=== PATIENT | female | born 1975 | race Hispanic/Latino ===

== ENCOUNTER 2018-03-03 16:00 | Observation (INO) | payer OTHER ==
[~2018-03-03] VITALS: Ht 157.5 cm; Wt 88.6 kg
--- NOTE | 2018-03-03 16:10 | NUR ---
REC'D PT IN RM 8 WITH C/O NUMBNESS/TINGLING AND CRAMPING OF HER ARMS AND LEGS. TRIAGE NURSE,TECH AND PRIMARY RN AT BEDSIDE.
--- NOTE | 2018-03-03 16:30 | NUR ---
UNABLE TO SIT STILL AND IS AMBULATING AROUND THE ROOM. FINALLY MOVED TO A CHAIR. UPDATED ON POC/ORDERS
--- NOTE | 2018-03-03 17:00 | Diagnostic Imaging Report ---
EXAM: XR CHEST 1 VIEW DATE: 03/03/2018 4:37 PM INDICATION: Pain COMPARISON: None FINDINGS: Lines and Tubes: None Heart and Mediastinum: No acute cardiomediastinal findings. Lungs and Pleura: No significant pleural effusion, pneumothorax, or focal consolidation. Bones and Soft Tissues: No acute findings. IMPRESSION: 1. No acute cardiopulmonary findings. Signed by: Dr. William Vail MD on 03/03/2018 4:56 PM
[2018-03-03 17:02] LABS: BASOPHILS % 0.6 % (0.0-1.0); EOSINOPHILS # (AUTO) 0.1 (0.0-0.4); EOSINOPHILS % 2.2 % (0.0-6.0); HEMATOCRIT 31.8 % (34.2-44.1); HEMOGLOBIN 11.6 g/dL (12.0-16.0); LYMPHOCYTES # (AUTO) 1.9 (1.0-3.2); LYMPHOCYTES % 29.2 % (18.0-39.1); MEAN CORPUSCULAR HEMOGLOBIN 31.4 pg (28-32); MEAN CORPUSCULAR HGB CONC 36.5 g/dL (31-35); MEAN CORPUSCULAR VOLUME 86.2 fL (81-99); MONOCYTES # (AUTO) 0.5 (0.2-0.8); MONOCYTES % 8.3 % (4.4-11.3); NEUTROPHILS # (AUTO) 3.8 (2.1-6.9); NEUTROPHILS % 59.2 % (38.7-80.0); PLATELET COUNT 291 x10e3/uL (140-360); RED BLOOD COUNT 3.69 x10e6/uL (3.6-5.1); RED CELL DISTRIBUTION WIDTH 13.5 % (11.7-14.4)
[2018-03-03 17:10] LABS: CLARITY,URINE HAZY (CLEAR); COLOR,URINE STRAW (YELLOW); KETONES,URINE NEGATIVE (NEGATIVE); LEUKOCYTE ESTERASE ,URINE 1+ (NEGATIVE); NITRITE,URINE NEGATIVE (NEGATIVE); PROTEIN,URINE DIPSTICK NEGATIVE (NEGATIVE); URINE UROBILINOGEN 0.2 mg/dL (0.2 - 1)
[2018-03-03 17:11] LABS: BILIRUBIN,URINE NEGATIVE (NEGATIVE); PREGNANCY TEST, URINE NEGATIVE (NEGATIVE)
[2018-03-03] MEDS ORDERED: LACTATED RINGER'S 1,000 ML IV SCH (17:15)
[2018-03-03 17:17] LABS: BACTERIA,URINE MANY /HPF; EPITHELIAL CELLS,URINE MANY /LPF; RBC,URINE 0-5 /HPF (0-5); WBC,URINE (MAN) 0-5 /HPF (0-5)
[2018-03-03 17:21] LABS: ALANINE AMINOTRANSFERASE 10 IU/L (0-55); ALBUMIN 2.9 g/dL (3.5-5.0); ALKALINE PHOSPHATASE 53 IU/L (40-150); AMYLASE 71 U/L (25-125); ANION GAP 17.1 mmol/L (8-16); BLOOD UREA NITROGEN < 5 mg/dL (7-26); CALCIUM 7.3 mg/dL (8.4-10.2); CARBON DIOXIDE 33 mmol/L (22-29); CHLORIDE 88 mmol/L (98-107); CREATINE KINASE 240 IU/L (29-168); CREATININE, SERUM 0.67 mg/dL (0.57-1.11); EST GLOMERULAR FILTRATION RATE > 60 ML/MIN (60-); GLUCOSE 84 mg/dL (74-118); LIPASE 30 U/L (8-78); MAGNESIUM 1.3 MG/DL (1.3-2.1); SODIUM 136 mmol/L (136-145)
[2018-03-03 17:25] LABS: BUN/CREATININE RATIO 7 (6-25); POTASSIUM 2.1 mmol/L (3.5-5.1)
--- NOTE | 2018-03-03 17:27 | NUR ---
RECEIVED CRITICAL LAB REPORT. INFORMATION GIVEN TO STANISLAV Daniels AND DR. TRAN.
[2018-03-03] MEDS ORDERED: MAGNESIUM SULFATE 2GM/50ML 50 ML IV ONE ×2 (17:30→17:35)
[2018-03-03] MEDS ORDERED: POTASSIUM CHLORIDE 20MEQ/100ML 100 ML IV ONE (17:30)
[2018-03-03] MEDS ORDERED: MAGNESIUM SULF 1GRAM/DEXTROSE 100 ML IV ONE (17:30)
[2018-03-03] MEDS ORDERED: POTASSIUM CHLORIDE 20 MEQ TAB CR PO NR ×2 (17:30→23:00)
--- NOTE | 2018-03-03 17:30 | NUR ---
IVF BOLUS OF L.R. INFUSING WITH NO PROBLEM.
--- NOTE | 2018-03-03 17:30 | NUR ---
PATIENT PLACED BACK ON CSW. SHE IS MOVING AROUND ALOT, STANDING UP, ANXIOUS. EXPLAINED TO HER THAT HER ELECTROLYTES WERE OUT OF BALANCE WITH HER POTTASIUM AND CALCIUM. SHE VERBALIZED UNDERSTANDING AND GOT BACK INTO BED. PATIENT HAD SMELL OF ETOH LIKE SUBSTANCE. WHEN ASKED SHE STATES, "I DRANK 2 TALL BEERS LAST NIGHT". WHEN QUESTIONED FURTHER PATIENT STATES SHE DRINKS 4 TALL BEERS A DAY BUT HAS CUT BACK. WHEN QUESTIONED MORE PATIENT STATES 6 MONTHS AGO SHE WOULD DRINK [address] T[address]TH[address]. SELIN COL[place]ADO N.P. AT BEDSIDE RE-EVALUATING PATIENT
[2018-03-03] MEDS ORDERED: CALCIUM GLUCONATE 10% INJ 9.3 MEQ in SODIUM CHLORIDE 0.9% 100 ML 100 ML IV ONE (17:45)
[2018-03-03] MEDS ORDERED: CALCIUM GLUCONATE 10% INJ 0.465 MEQ/ML VIAL ONE (17:47)
[2018-03-03 17:51] LABS: AMPHETAMINES SCREEN,URINE NEGATIVE (NEGATIVE); BENZODIAZEPINES SCREEN,URINE NEGATIVE (NEGATIVE); PHENCYCLIDINE SCREEN,URINE NEGATIVE (NEGATIVE)
[2018-03-03] MEDS ORDERED: MULTIVITAMINS- 12 INJECTION 10 ML, FOLIC ACID MDV 5 MG, THIAMINE HCL INJ 100 MG in SODI... IV ONE (18:00)
[2018-03-03] MEDS ORDERED: LORAZEPAM INJ 2 MG/ML VIAL IV NR (18:00)
--- NOTE | 2018-03-03 18:00 | NUR ---
MEDS GIVEN PER DR'S ORDERS AND PT TOLERATING WELL.
[2018-03-03] MEDS ORDERED: HYDROXYCHLOROQ200 MG PO (18:02)
[2018-03-03] MEDS ORDERED: CYMBALTA30 MG PO (18:02)
[2018-03-03] MEDS ORDERED: ESIDRIX25 MG PO (18:02)
[2018-03-03] MEDS ORDERED: CLONIDINE HCL0.1 MG PO (18:02)
[2018-03-03] MEDS ORDERED: ONDANSETRON HCL INJ 2MG/ML 2ML 2 MG/ML VIAL IV PRN (18:15)
[2018-03-03] MEDS ORDERED: LORAZEPAM INJ 2 MG/ML VIAL IV PRN (18:15)
[2018-03-03 18:20] LABS: ABG HCO3 32 mmol/L (23-28); ABG PCO2 40 mmHg (41-51); ABG PO2 97 mmHg (80-105)
[2018-03-03 18:33] LABS: CALCIUM IONIZED 0.9 mmol/L (1.09-1.30)
--- OUTSIDE RECORDS SUMMARY | 2018-03-03 18:35 | XMS REPORT | Clinical Summary ---
Author Author [facility] Organization [facility] Address Unknown Phone Unavailable Care Team Providers Care Commissary Agent Name Role Phone Asked, No Pcp PCP Unavailable Allergies No Known Allergies Medications End Date Status Medication Sig Dispensed Refills Start Date Active diclofenac (VOLTAREN) 75 Take 75 mg by 0 MG EC tablet mouth 2 (two) times a day. Active DULoxetine (CYMBALTA) 30 Take 60 mg by 0 MG capsule mouth daily. Active hydroxychloroquine Take 200 mg 0 (PLAQUENIL) 200 mg tablet by mouth 2 (two) times a day. Active Problems Problem Noted Date General weakness 02/02/2016 Family History Medical History Relation Name Comments No Known Problems Father No Known Problems Mother Relation Name Status Comments Father Mother Social History Date Tobacco Use Types Packs/Day Years Used Never Smoker Alcohol Use Drinks/Week oz/Week Comments Yes occasional Sex Assigned at Date Recorded Not on file Industry Job Start Date Occupation Not on file Not on file Not on file Travel End Travel History Travel Start No recent travel history available. Last Filed Vital Signs Not on file Plan of Treatment Health Maintenance Due Date Last Done Comments CERVICAL CANCER SCREENING 12/01/1996 INFLUENZA VACCINE 09/06/2017 Results Not on fileafter 03/02/2017 Insurance Payer Benefit Subscriber ID Type Phone Address Plan / Group CIGNA CIGNA xxxxxxxxx HMO HMO/POS Advance Directives Patient has advance care planning documents on file. For more information, mary [facility] contact: Jamie Hernández [address] [place] [phone]
--- OUTSIDE RECORDS SUMMARY | 2018-03-03 18:35 | XMS REPORT ---
Author Author [facility] Address Unknown Phone Unavailable Care Team Providers Care Seam Presser Name Role Phone Ema TRAN Unavailable Unavailable Problems This patient has no known problems. Allergies, Adverse Reactions, Alerts This patient has no known allergies or adverse reactions. Medications This patient has no known medications. Encounters Start Date/Time End Date/Time Encounter Type Admission Type Attending [facility] Facility Care Department Encounter ID 2016-08-01 00:00:00 2016-08-01 00:00:00 Outpatient [facility] [id number] 2016-08-01 00:00:00 2016-08-01 00:00:00 Outpatient [facility] [id number] 2016-07-14 00:00:00 2016-07-14 00:00:00 Outpatient [facility] [id number] 2016-07-14 00:00:00 2016-07-14 00:00:00 Outpatient [facility] [id number] 2016-06-23 00:03:55 2016-06-23 00:03:55 Emergency [facility] [id number] 2016-06-22 22:23:36 2016-06-22 22:23:36 Emergency [facility] [id number] 2016-06-22 18:18:30 2016-06-22 18:18:30 Emergency [facility] [id number] Results Test Description Test Time Test Comments Text Results Atomic Results Result Comments CHEST SINGLE (PORTABLE) 2018-03-03 16:56:00 [facility] [address] [place] [address] Patient Name: DANIELLE HUNTER MR #: [id number] : 1975 Age/Sex: 42/F Req #: [id number] Adm Physician: Ordered by: DWAINE MIRANDA [employer] Report #: [id number] Location: ER Room/Bed: Procedure: [id number] DX/CHEST SINGLE (PORTABLE) Exam Date: 03/03/18 Exam Time: 1645 REPORT STATUS: Signed EXAM: XR CHEST 1 VIEW DATE: 03/03/2018 4:37 PM INDICATION: Pain COMPARISON: None FINDINGS: Lines and Tubes: None Heart and Mediastinum: No acute cardiomediastinal findings. Lungs and Pleura: No significant pleural effusion, pneumothorax, or focal consolidation. Bones and Soft Tissues: No acute findings. IMPRESSION: 1. No acute cardiopulmonary findings. Signed by: Dr. William Vail MD on 03/03/2018 4:56 PM Dictated By: WILLIAM VAIL MD 55 Transcribed By: MICHELLE on 03/03/181655 COPY TO: DWAINE MIRANDA NP
[2018-03-03 18:38] LABS: PHOSPHORUS 2.8 MG/DL (2.3-4.7)
--- NOTE | 2018-03-03 18:40 | NUR ---
ATIVAN 1MG GIVEN PER DR'S ORDERS; PT UNDERSTANDS WHY
--- NOTE | 2018-03-03 18:41 | NUR ---
RESTING IN BED AT THIS TIME TALKING ON THE PHONE.
--- NOTE | 2018-03-03 19:49 | NUR ---
DR. REYNOSO AT [facility]. REPORT CALLED TO [facility] FOR THIS PT. TO GO TO RM 294
--- NOTE | 2018-03-03 20:34 | NUR ---
PATIENT RECEIVED FROM EMERGENCY DEPARTMENT PER STRETCHER AT 2008; SHE'S ALERT AND ORIENTED X4, NO RESPIRATORY DISTRESS OBSERVED AND SHE DENIES PAIN. SKIN INTEGRITY INTACT, NO EDEMA NOTED TO THE EXTREMITIES. PATIENT STATED "I FELL AT HOME TWO WEEKS AGO DUE TO DIZZINESS". BED ALARM ON, ORIENTED TO SURROUNDINGS AND CALL LIGHT WITHIN EASY REACH.
[2018-03-03 20:57] VITALS: BP 124/80
[2018-03-03 21:00] VITALS: BP 124/80
[2018-03-03] MEDS ORDERED: SODIUM CHLORIDE 0.9% 50ML 50 ML ONE (21:48)
[2018-03-03] MEDS: CEFTRIAXONE SOD 1 GM/NS 50 ML 50 ML IV SCH (22:11)
[2018-03-03] MEDS: METOPROLOL TARTRATE 25 MG TAB PO SCH (22:12)
[2018-03-04] VITALS (8 sets, daily range): BP systolic 108–148; BP diastolic 65–102
--- NOTE | 2018-03-04 01:07 | NUR ---
PATIENT ASSISTED TO THE REST ROOM, NO ACUTE DISTRESS OBSERVED AND SHE DENIES PAIN. CALL LIGHT IN EASY REACH, BED ALARM ON, PATIENT INSTRUCTED TO CALL FOR ASSISTANCE NEEDED.
--- NOTE | 2018-03-04 04:27 | NUR ---
WALKING ROUNDS MADE; PATIENT IS ASLEEP, SHE'S EASY TO AROUSE. NO DISTRESS OBSERVED, SHE DENIES PAIN. BED ALARM ON, CALL LIGHT WITHIN EASY REACH.
[2018-03-04 05:12] LABS: BASOPHILS % 0.5 % (0.0-1.0); EOSINOPHILS # (AUTO) 0.1 (0.0-0.4); EOSINOPHILS % 2.6 % (0.0-6.0); HEMATOCRIT 32.2 % (34.2-44.1); HEMOGLOBIN 10.8 g/dL (12.0-16.0); LYMPHOCYTES % 25.8 % (18.0-39.1); MEAN CORPUSCULAR HEMOGLOBIN 30.1 pg (28-32); MEAN CORPUSCULAR HGB CONC 33.5 g/dL (31-35); MEAN CORPUSCULAR VOLUME 89.7 fL (81-99); MONOCYTES # (AUTO) 0.4 (0.2-0.8); MONOCYTES % 8.9 % (4.4-11.3); NEUTROPHILS # (AUTO) 2.4 (2.1-6.9); NEUTROPHILS % 61.7 % (38.7-80.0); PLATELET COUNT 248 x10e3/uL (140-360); RED BLOOD COUNT 3.59 x10e6/uL (3.6-5.1); RED CELL DISTRIBUTION WIDTH 13.6 % (11.7-14.4)
[2018-03-04 05:30] LABS: ALANINE AMINOTRANSFERASE 8 IU/L (0-55); ALBUMIN 2.6 g/dL (3.5-5.0); ALBUMIN/GLOBULIN RATIO 1.1 (0.8-2.0); ALKALINE PHOSPHATASE 48 IU/L (40-150); BLOOD UREA NITROGEN < 5 mg/dL (7-26); CALCIUM 7.3 mg/dL (8.4-10.2); CARBON DIOXIDE 31 mmol/L (22-29); CHLORIDE 100 mmol/L (98-107); CREATININE, SERUM 0.68 mg/dL (0.57-1.11); EST GLOMERULAR FILTRATION RATE > 60 ML/MIN (60-); GLUCOSE 109 mg/dL (74-118); SODIUM 142 mmol/L (136-145)
[2018-03-04 05:35] LABS: BUN/CREATININE RATIO 7 (6-25)
--- NOTE | 2018-03-04 05:59 | NUR ---
CALL AND SPOKE WITH DR REYNOSO REGARDING THIS PATIENT'S POTASSIUM LEVEL OF 3.0, NO NEW ORDER RECEIVED. MD WAS ASKED SPECIFICALLY IF HE DIDN'T WANT TO REPLACE THE POTASSIUM, HE STATED "NOT YET".
[2018-03-04] MEDS: METOPROLOL TARTRATE 25 MG TAB PO SCH ×2 (08:25→20:36)
[2018-03-04] MEDS: FAMOTIDINE 20 MG TAB PO SCH ×2 (08:25→16:06)
[2018-03-04] MEDS ORDERED: POTASSIUM CHLORIDE 20 MEQ TAB CR PO NR (11:30)
[2018-03-04] MEDS ORDERED: CALCIUM GLUCONATE 10% INJ 9.3 MEQ in SODIUM CHLORIDE 0.9% 100 ML 100 ML IV ONE (11:30)
[2018-03-04] MEDS: ALPRAZOLAM 0.25 MG TAB PO PRN (11:34)
[2018-03-04] MEDS: DULOXETINE HCL 30 MG DELAYED RELEASE PO SCH (11:40)
[2018-03-04] MEDS: HYDROXYCHLOROQUINE SULFATE 200 MG TAB PO SCH ×2 (11:40→16:06)
[2018-03-04 15:36] LABS: ALANINE AMINOTRANSFERASE 10 IU/L (0-55); ALBUMIN 2.6 g/dL (3.5-5.0); ALBUMIN/GLOBULIN RATIO 0.9 (0.8-2.0); ALKALINE PHOSPHATASE 50 IU/L (40-150); ANION GAP 12.7 mmol/L (8-16); BLOOD UREA NITROGEN < 5 mg/dL (7-26); CALCIUM 8.2 mg/dL (8.4-10.2); CARBON DIOXIDE 29 mmol/L (22-29); CHLORIDE 101 mmol/L (98-107); CREATININE, SERUM 0.71 mg/dL (0.57-1.11); EST GLOMERULAR FILTRATION RATE > 60 ML/MIN (60-); GLUCOSE 130 mg/dL (74-118); MAGNESIUM 1.5 MG/DL (1.3-2.1); POTASSIUM 3.7 mmol/L (3.5-5.1); SODIUM 139 mmol/L (136-145)
[2018-03-04 15:41] LABS: BUN/CREATININE RATIO 7 (6-25)
[2018-03-04] MEDS: ACETAMINOPHEN 325 MG TAB PO PRN (17:22)
--- NOTE | 2018-03-04 18:50 | NUR ---
[facility], patient aware of nurse change. Call rucker within reach and bed in lowest position.
--- NOTE | 2018-03-04 18:58 | NUR ---
IM- Progress Note O/N: no events RoS: no f/c/s/N/V/D/BETHEA/dizziness/cp/sob v/s; rev'd PE: tired appearing anicteric ns1s2 mod bs soft nt nd no e/t a&ox3; hopper labs/meds; revd A/P: 42yoF Hypokalemia UTI Alcohol intoxication Hypocalcemia HTn Lupus Fibromyalgia PLan: 1.replace lytes 2.alcohol cessation counseling 3.treat UTI; f/u cx; 03/04 Check lipids and Hba1c Pepe Parmar MD, PhD.
--- NOTE | 2018-03-04 19:00 | NUR ---
patient recieved awake, alert, lying quietly in bed. vss. no c/o pain noted. pm assessment complete. patient instructed to call for assistance when needed.
[2018-03-04] MEDS: CEFTRIAXONE SOD 1 GM/NS 50 ML 50 ML IV SCH (20:30)
[2018-03-04] MEDS ORDERED: ZOLPIDEM TARTRATE 5 MG TAB PO SCH (21:15)
[2018-03-05] MEDS: ALPRAZOLAM 0.25 MG TAB PO PRN (00:20)
--- NOTE | 2018-03-05 00:20 | NUR ---
bp 159/95 patient medicated with xanax 0.25mg po for anxiety.
[2018-03-05 00:30] VITALS: BP 159/95
[2018-03-05 04:00] VITALS: BP 163/98
--- NOTE | 2018-03-05 05:30 | NUR ---
bp remains elevated this am. bp 163/98. call placed to re: elevated bp and new order recieved.
[2018-03-05] MEDS ORDERED: ALPRAZOLAM0.25 MG PO (07:42)
[2018-03-05] MEDS ORDERED: FAMOTIDINE20 MG PO (07:42)
--- NOTE | 2018-03-05 07:44 | NUR ---
Discharge Summary Principal Dx: A/P: 42yoF Hypokalemia UTI Alcohol intoxication Hypocalcemia HTn Lupus Fibromyalgia Secondary Dx: Lupus cc and HPI; refer to H&P Hospital Course: A/P: 42yoF Hypokalemia UTI Alcohol intoxication Hypocalcemia HTn Lupus Fibromyalgia PLan: 1.replace lytes 2.alcohol cessation counseling 3.treat UTI; f/u cx; 03/04 Check lipids and Hba1c f/u pcp 1 week condition; stable d/c meds; see MAR d/c time>35mins d/c home Pepe Parmar MD, PhD.
[2018-03-05 08:00] VITALS: BP 166/95
[2018-03-05] MEDS ORDERED: PNEUMOCOCCAL VACCINE POLYVALENT 23 MCG/0.5 ML VIAL IM NR (08:00)
[2018-03-05] MEDS ORDERED: INFLUENZA VIRUS VAC SPLIT INJ 0.5 ML SYR IM NR (08:00)
[2018-03-05 08:18] LABS: CHOL/HDL RATIO 2.5 (3.0-3.6)
[2018-03-05] MEDS: FAMOTIDINE 20 MG TAB PO SCH (08:25)
[2018-03-05] MEDS: DULOXETINE HCL 30 MG DELAYED RELEASE PO SCH (08:25)
[2018-03-05] MEDS: METOPROLOL TARTRATE 25 MG TAB PO SCH (08:26)
[2018-03-05] MEDS: HYDROXYCHLOROQUINE SULFATE 200 MG TAB PO SCH (08:26)
[2018-03-05] MEDS ORDERED: HYDROCHLOROTHIAZIDE 25 MG TAB PO SCH (09:00)
[2018-03-05] MEDS: ACETAMINOPHEN 325 MG TAB PO PRN (10:56)
[2018-03-05 12:00] VITALS: BP 168/99
--- NOTE | 2018-03-05 12:24 | NUR ---
Pt discharged to home at this time. Pt is aox4 and able to verbalize needs. Denies any pain at this time. PT verbalized understanding of discharge instructions.
== END 2018-03-05 12:44 | disposition home or self-care (01) ==
LOC: ER 16:00 → ERHOLD 18:32 → MED/SURG3 19:27
PROVIDERS: ADMIT Internal Medicine; ATTEND Internal Medicine
DX: E87.6 Hypokalemia (principal); N39.0 Urinary tract infection, site not specified; F10.120 Alcohol abuse with intoxication, uncomplicated; M79.7 Fibromyalgia; I10 Essential (primary) hypertension; M32.9 Systemic lupus erythematosus, unspecified; E83.51 Hypocalcemia
CPT/HCPCS: 36415 ×3; 71045; 80053 ×2; 80061; 80307; 80320; 81001; 81025; 82150; 82306; 82330; 82550; 82553; 82805; 83036; 83690; 83735 ×2; 83970; 84100; 84443; 84484; 85025 ×2; 90732; 93005; 96367; 99284; G0378 ×3; J0610 ×2; J0696 ×2; J2060; J3411; J3475; J3480; J7030; J7120; J7121

== ENCOUNTER 2018-03-11 19:41 | Emergency (ER) | payer OTHER ==
[~2018-03-11] VITALS: Ht 157.5 cm; Wt 86.2 kg
[~2018-03-11 19:41] MED LIST: ALPRAZOLAM0.25 MG PO; CLONIDINE HCL0.1 MG PO; CYMBALTA30 MG PO; ESIDRIX25 MG PO; FAMOTIDINE20 MG PO; HYDROXYCHLOROQ200 MG PO
--- OUTSIDE RECORDS SUMMARY | 2018-03-11 19:43 | XMS REPORT | Clinical Summary ---
Author Author [facility] Organization [facility] Address Unknown Phone Unavailable Care Team Providers Care Language Translator Name Role Phone Asked, No Pcp PCP [...] INFLUENZA VACCINE 09/06/2017 Results Not on fileafter 03/10/2017 Insurance Payer Benefit Subscriber ID Type Phone Address Plan / Group CIGNA CIGNA xxxxxxxxx HMO HMO/POS Advance Directives Patient has advance care planning documents on file. For more information, mary solis contact: Jamie Hernández [address] [place] [phone]
[2018-03-11 20:13] LABS: BASOPHILS % 0.2 % (0.0-1.0); EOSINOPHILS # (AUTO) 0.2 (0.0-0.4); EOSINOPHILS % 2.5 % (0.0-6.0); HEMATOCRIT 31.7 % (34.2-44.1); HEMOGLOBIN 11.1 g/dL (12.0-16.0); LYMPHOCYTES # (AUTO) 2.3 (1.0-3.2); LYMPHOCYTES % 27.7 % (18.0-39.1); MEAN CORPUSCULAR HEMOGLOBIN 30.7 pg (28-32); MEAN CORPUSCULAR VOLUME 87.8 fL (81-99); MONOCYTES # (AUTO) 0.6 (0.2-0.8); MONOCYTES % 7.3 % (4.4-11.3); NEUTROPHILS % 61.9 % (38.7-80.0); PLATELET COUNT 245 x10e3/uL (140-360); RED BLOOD COUNT 3.61 x10e6/uL (3.6-5.1); RED CELL DISTRIBUTION WIDTH 13.6 % (11.7-14.4)
[2018-03-11 20:20] LABS: INR 0.97; PROTHROMBIN TIME 13.8 seconds (11.9-14.5)
[2018-03-11 20:21] LABS: PARTIAL THROMBOPLASTIN TIME 27.5 seconds (23.8-35.5)
[2018-03-11 20:31] LABS: ALANINE AMINOTRANSFERASE 27 IU/L (0-55); ALBUMIN 2.9 g/dL (3.5-5.0); ALKALINE PHOSPHATASE 73 IU/L (40-150); ANION GAP 14.9 mmol/L (8-16); BLOOD UREA NITROGEN 6 mg/dL (7-26); BUN/CREATININE RATIO 8 (6-25); CARBON DIOXIDE 28 mmol/L (22-29); CHLORIDE 90 mmol/L (98-107); CREATINE KINASE 327 IU/L (29-168); CREATININE, SERUM 0.75 mg/dL (0.57-1.11); EST GLOMERULAR FILTRATION RATE > 60 ML/MIN (60-); GLUCOSE 98 mg/dL (74-118); SODIUM 130 mmol/L (136-145)
[2018-03-11 20:34] LABS: CALCIUM 6.7 mg/dL (8.4-10.2); POTASSIUM 2.9 mmol/L (3.5-5.1)
--- NOTE | 2018-03-11 20:36 | Diagnostic Imaging Report ---
CHEST SINGLE (PORTABLE), 03/11/2018 8:03 PM Technique: CHEST SINGLE (PORTABLE) Comparison: 03/03/2018 Clinical history: Chest pain Findings: Prominent cardiac silhouette, accentuated by technique. No consolidation or edema. No effusion or pneumothorax. Impression: 1. Lines/Tubes: None 2. No acute abnormality. Signed by: Dr Regine Evans MD on 03/11/2018 8:33 PM
[2018-03-11] MEDS ORDERED: CALCIUM CARBONATE 500 MG CHEWABLE TABS PO STA (21:03)
[2018-03-11] MEDS ORDERED: POTASSIUM CHLORIDE 20 MEQ TAB CR PO STA (21:03)
[2018-03-11 21:28] LABS: AMPHETAMINES SCREEN,URINE NEGATIVE (NEGATIVE); BENZODIAZEPINES SCREEN,URINE NEGATIVE (NEGATIVE); PHENCYCLIDINE SCREEN,URINE NEGATIVE (NEGATIVE)
[2018-03-11 21:30] LABS: CLARITY,URINE CLEAR (CLEAR); COLOR,URINE YELLOW (YELLOW); KETONES,URINE NEGATIVE (NEGATIVE); LEUKOCYTE ESTERASE ,URINE NEGATIVE (NEGATIVE); NITRITE,URINE NEGATIVE (NEGATIVE); PROTEIN,URINE DIPSTICK NEGATIVE (NEGATIVE); URINE UROBILINOGEN 0.2 mg/dL (0.2 - 1)
[2018-03-11 21:31] LABS: BILIRUBIN,URINE NEGATIVE (NEGATIVE)
[2018-03-11 21:33] LABS: BACTERIA,URINE FEW /HPF; EPITHELIAL CELLS,URINE MANY /LPF; RBC,URINE 0-5 /HPF (0-5); WBC,URINE (MAN) 0-5 /HPF (0-5)
[2018-03-11 22:01] LABS: BAND NEUTROPHILS % (MANUAL) 2 %; EOSINOPHILS % (MANUAL) 2 % (0-7); LYMPHOCYTES % (MANUAL) 27 % (19-48); MONOCYTES % (MANUAL) 1 % (3.4-9.0); NEUTROPHILS % (MANUAL) 68 % (40-74); PLATELET ESTIMATE ADEQUATE; PLATELET MORPHOLOGY COMMENT NORMAL; RBC MORPHOLOGY COMMENT NORMAL
[2018-03-11 23:05] VITALS: BP 121/89
== END 2018-03-11 23:21 | disposition home or self-care (01) ==
LOC: ER 19:41
DX: R20.2 Paresthesia of skin (principal); E83.51 Hypocalcemia; E87.6 Hypokalemia; K52.9 Noninfective gastroenteritis and colitis, unspecified; I10 Essential (primary) hypertension; M32.9 Systemic lupus erythematosus, unspecified
CPT/HCPCS: 36415; 71045; 80053; 80307; 80320; 81001; 82330; 82550; 82553; 84484; 85025; 85610; 85730; 93005; 99284

== ENCOUNTER 2019-11-05 19:06 | Emergency (ER) | payer SELFPAY ==
[~2019-11-05] VITALS: Ht 157.5 cm; Wt 86.2 kg
[2019-11-05] MEDS ORDERED: ONDANSETRON HCL INJ 2MG/ML 2ML 2 MG/ML VIAL ONE (19:40)
[2019-11-05] MEDS ORDERED: SODIUM CHLORIDE 0.9% 1000ML 1,000 ML ONE (19:40)
[2019-11-05] MEDS ORDERED: PANTOPRAZOLE 40 MG 10ML VIAL IV NR (19:45)
[2019-11-05] MEDS ORDERED: ONDANSETRON HCL INJ 2MG/ML 2ML 2 MG/ML VIAL IV NR (19:45)
[2019-11-05] MEDS ORDERED: SODIUM CHLORIDE 0.9% 1000ML 1,000 ML IV ONE (19:45)
[2019-11-05 19:57] LABS: BASOPHILS # (AUTO) 0.1 (0.0-0.1); BASOPHILS % 0.8 % (0.0-1.0); EOSINOPHILS # (AUTO) 0.1 (0.0-0.4); EOSINOPHILS % 1.5 % (0.0-6.0); HEMATOCRIT 36.8 % (34.2-44.1); HEMOGLOBIN 12.1 g/dL (12.0-16.0); LYMPHOCYTES % 32.5 % (18.0-39.1); MEAN CORPUSCULAR HEMOGLOBIN 28.9 pg (28-32); MEAN CORPUSCULAR HGB CONC 32.9 g/dL (31-35); MONOCYTES # (AUTO) 0.7 (0.2-0.8); MONOCYTES % 11.5 % (4.4-11.3); NEUTROPHILS # (AUTO) 3.2 (2.1-6.9); NEUTROPHILS % 53.5 % (38.7-80.0); PLATELET COUNT 241 x10e3/uL (140-360); RED BLOOD COUNT 4.18 x10e6/uL (3.6-5.1); RED CELL DISTRIBUTION WIDTH 15.9 % (11.7-14.4)
[2019-11-05 20:08] LABS: ALANINE AMINOTRANSFERASE 97 IU/L (0-55); ALBUMIN 4.6 g/dL (3.5-5.0); ALBUMIN/GLOBULIN RATIO 1.2 (0.8-2.0); ALKALINE PHOSPHATASE 164 IU/L (40-150); ANION GAP 16.6 mmol/L (8-16); BLOOD UREA NITROGEN 5 mg/dL (7-26); BUN/CREATININE RATIO 7 (6-25); CALCIUM 8.8 mg/dL (8.4-10.2); CARBON DIOXIDE 24 mmol/L (22-29); CHLORIDE 97 mmol/L (98-107); CREATINE KINASE 174 IU/L (29-168); CREATININE, SERUM 0.74 mg/dL (0.57-1.11); EST GLOMERULAR FILTRATION RATE > 60 ML/MIN (60-); GLUCOSE 89 mg/dL (74-118); POTASSIUM 3.6 mmol/L (3.5-5.1); SODIUM 134 mmol/L (136-145)
[2019-11-05 21:43] VITALS: BP 142/97
== END 2019-11-05 21:53 | disposition home or self-care (01) ==
LOC: ER 19:53
DX: R00.2 Palpitations (principal); I10 Essential (primary) hypertension; M32.9 Systemic lupus erythematosus, unspecified; F41.9 Anxiety disorder, unspecified; M79.7 Fibromyalgia
CPT/HCPCS: 36415; 80053; 82550; 82553; 84484; 85025; 93005; 99283; C9113; J2405; J7030

== ENCOUNTER 2019-12-09 17:43 | Emergency (ER) | payer SELFPAY ==
[~2019-12-09] VITALS: Ht 157.5 cm; Wt 84.1 kg
[2019-12-09] MEDS ORDERED: AZITHROMYCIN 250 MG TAB ONE (20:25)
[2019-12-09] MEDS ORDERED: ONDANSETRON HCL INJ 2MG/ML 2ML 2 MG/ML VIAL IV STA (21:45)
[2019-12-09] MEDS ORDERED: ONDANSETRON ODT8 MG PO (21:47)
[2019-12-09] MEDS ORDERED: ONDANSETRON HCL INJ 2MG/ML 2ML 2 MG/ML VIAL ONE (21:52)
== END 2019-12-09 22:10 | disposition home or self-care (01) ==
LOC: FSED 18:17
DX: R07.9 Chest pain, unspecified (principal); E87.1 Hypo-osmolality and hyponatremia; E87.6 Hypokalemia; R74.8 Abnormal levels of other serum enzymes; F10.10 Alcohol abuse, uncomplicated; M32.9 Systemic lupus erythematosus, unspecified; M79.7 Fibromyalgia; I10 Essential (primary) hypertension; F41.9 Anxiety disorder, unspecified
CPT/HCPCS: 71046; 80053; 81003; 81025; 82553; 83880; 84484; 85025; 85379; 87400; 93005; 99283; J2405

== ENCOUNTER 2019-12-10 01:57 | Emergency (ER) | payer SELFPAY ==
[~2019-12-10] VITALS: Ht 157.5 cm; Wt 83.9 kg
[~2019-12-10 01:57] MED LIST changes: +ONDANSETRON ODT8 MG PO
[2019-12-10] MEDS ORDERED: ASPIRIN 81 MG CHEW TAB PO ONE (02:00)
--- NOTE | 2019-12-10 02:02 | Emergency Department Note ---
History of Present Illnes History of Present Illness History of Present Illness This is a 44 year old female returns to the ED for CP after being seen at [facility] 12 hours earlier .Complains of dysthesias b/l LE . Historian: Patient Arrival Mode: Car Onset (how long ago): day(s) (2) Duration (how long): day(s) (2) Timing of current episode: constant Progression: worsening Chronicity: new Context: Denies recent illness, Denies recent surgery, Denies recent immobilization, Denies recent travel, Denies trauma/injury, Denies new medicatio ns, Denies hx of DVT/PE, Denies non-compliance w/ medications, Denies other Relieving factors: none Exacerbating factors: none Associated symptoms: Reports chest pain, Reports nausea/vomiting Previous service: tests performed, one or more referrals Past Medical/Family History Physician Review I have reviewed the patient's past medical and family history. Any updates have been documented here. Past Medical History Clinical Suspicion of Infectio: No New/Unexplained Change in Ment: No Past Medical History: Hypertension, Lupus Other Medical History: fibromyalgia Past Surgical History: Cholecysctectomy, Other Surgery: RIGHT ANKLE FX Social History Smoking Cessation: Current some day smoker Alcohol Use: Social Any Illegal Drug Use: No Other Last Tetanus: OOD Review of Systems Review of Systems Constitutional: Reports no symptoms EENTM: Reports no symptoms Cardiovascular: Reports chest pain Respiratory: Reports no symptoms Gastrointestinal: Reports nausea, Reports vomiting Genitourinary: Reports no symptoms Musculoskeletal: Reports no symptoms Integumentary: Reports no symptoms Neurological: Reports no symptoms Psychological: Reports no symptoms Endocrine: Reports no symptoms Hematological/Lymphatic: Reports no symptoms Physical Exam Related Data Allergies: Coded Allergies: No Known Allergies (Unverified , 03/11/18) Triage Vital Signs Vital Signs Date Time Temp Pulse Resp B/P (MAP) Pulse Ox O2 Delivery O2 Flow Rate FiO2 12/10/19 02:04 98.8 85 20 147/108 100 Room Air Vital signs reviewed: Yes Physical Exam CONSTITUTIONAL Constitutional: Present well-developed, Present other (intoxicated) HENT HENT: Present normocephalic, Present atraumatic, Present oropharynx clear/moist, Present nose normal HENT L/R: Present left ext ear normal, Present right ext ear normal EYES Eyes: Reports PERRL, Reports conjunctivae normal NECK Neck: Present ROM normal PULMONARY Pulmonary: Present effort normal, Present breath sounds normal CARDIOVASCULAR Cardiovascular: Present regular rhythm, Present heart sounds normal, Present capillary refill normal, Present normal rate GASTROINTESTINAL Abdominal: Present soft, Present nontender, Present bowel sounds normal GENITOURINARY Genitourinary: Present exam deferred SKIN Skin: Present warm, Present dry MUSCULOSKELETAL Musculoskeletal: Present ROM normal NEUROLOGICAL Neurological: Present alert, Present oriented x 3, Present no gross motor or sensory deficits PSYCHOLOGICAL Psychological: Present mood/affect normal, Present judgement normal Results Laboratory Lab results reviewed: Yes Laboratory comments Laboratory Tests Test 12/10/19 02:08 White Blood Count 4.52 x10e3/uL (4.8-10.8) Red Blood Count 4.24 x10e6/uL (3.6-5.1) Hemoglobin 12.5 g/dL (12.0-16.0) Hematocrit 37.2 % (34.2-44.1) Mean Corpuscular Volume 87.7 fL (81-99) Mean Corpuscular Hemoglobin 29.5 pg (28-32) Mean Corpuscular Hemoglobin Concent 33.6 g/dL (31-35) Red Cell Distribution Width 15.6 % (11.7-14.4) Platelet Count 225 x10e3/uL (140-360) Neutrophils (%) (Auto) 58.4 % (38.7-80.0) Lymphocytes (%) (Auto) 29.2 % (18.0-39.1) Monocytes (%) (Auto) 9.5 % (4.4-11.3) Eosinophils (%) (Auto) 1.8 % (0.0-6.0) Basophils (%) (Auto) 0.9 % (0.0-1.0) Neutrophils # (Auto) 2.6 (2.1-6.9) Lymphocytes # (Auto) 1.3 (1.0-3.2) Monocytes # (Auto) 0.4 (0.2-0.8) Eosinophils # (Auto) 0.1 (0.0-0.4) Basophils # (Auto) 0.0 (0.0-0.1) Absolute Immature Granulocyte (auto 0.01 x10e3/uL (0-0.1) D-Dimer Quantitative (PE/DVT) 132 ng/mL (0-400) Urine Test Negative (NEGATIVE) Sodium Level 136 mmol/L (136-145) Potassium Level 3.7 mmol/L (3.5-5.1) Chloride Level 96 mmol/L (98-107) Carbon Dioxide Level 27 mmol/L (22-29) Anion Gap 16.7 mmol/L (8-16) Blood Urea Nitrogen < 5 mg/dL (7-26) Creatinine 0.71 mg/dL (0.57-1.11) Estimat Glomerular Filtration Rate > 60 ML/MIN (60-) BUN/Creatinine Ratio 7 (6-25) Glucose Level 79 mg/dL (74-118) Calcium Level 8.7 mg/dL (8.4-10.2) Total Bilirubin 0.8 mg/dL (0.2-1.2) Aspartate Amino Transf (AST/SGOT) 69 IU/L (5-34) Alanine Aminotransferase (ALT/SGPT) 50 IU/L (0-55) Alkaline Phosphatase 98 IU/L (40-150) Creatine Kinase 162 IU/L (29-168) Creatine Kinase MB 1.20 ng/mL (0-5.0) Troponin I 0.009 ng/mL (0-0.300) B-Type Natriuretic Peptide 12.1 pg/mL (0-100) Total Protein 8.4 g/dL (6.5-8.1) Albumin 4.1 g/dL (3.5-5.0) Globulin 4.3 g/dL (2.3-3.5) Albumin/Globulin Ratio 1.0 (0.8-2.0) Lipase 40 U/L (8-78) Urine Opiates Screen Negative (NEGATIVE) Urine Methadone Screen Negative (NEGATIVE) Urine Barbiturates Screen Negative (NEGATIVE) Urine Phencyclidine Screen Negative (NEGATIVE) Urine Amphetamines Screen Negative (NEGATIVE) Urine Methamphetamines Screen Negative (NEGATIVE) Urine Benzodiazepines Screen Negative (NEGATIVE) Urine Cocaine Screen Negative (NEGATIVE) Urine Cannabinoids Screen Negative (NEGATIVE) Ethyl Alcohol Level 147.2 mg/dL (0.0-10.0) Imaging Imaging results reviewed: Yes Impressions [place] [address] Patient Name: DANIELLE HUNTER MR #: [id number] : 1975 Age/Sex: 44/F Req #: [id number] Adm Physician: Ordered by: KAYLA AYERS DO Report #: [id number] Location: ER Room/Bed: Procedure: [id number] CT/CT CHEST W Exam Date: 12/10/19 Exam Time: 329 REPORT STATUS: Signed EXAM: CT Chest WITH contrast (PE Protocol) INDICATION: ^CP ^[id number] ^0330 COMPARISON: Same day chest x-ray TECHNIQUE: Chest was scanned utilizing a multidetector helical scanner from the lung apex through the level of the diaphragm after administration of IV contrast. Thin section reconstructions were obtained with special concentration on the pulmonary arteries. Coronal and sagittal reformations were obtained. Dose modulation, iterative reconstruction, and/or weight based adjustment of the mA/kV was utilized to reduce the radiation dose to as low as reasonably achievable. Pulmonary embolism protocol was performed. IV CONTRAST: 100 mL of Isovue-370 COMPLICATIONS: None RADIATION DOSE: Total DLP: 474.58 mGy*cm Estimated effective dose: (DLP x 0.014 x size factor) mSv CTDIvol has been reviewed. It is below the limits set by the Radiation Protocol Committee (RPC). FINDINGS: LINES/ TUBES: None. LUNGS AND AIRWAYS: No filling defect is identified within the pulmonary arteries to the segmental level. The lungs are unremarkable. Airways are normal. PLEURA: The pleural spaces are clear. HEART AND MEDIASTINUM: Calcified inferior left thyroid lobe nodule. No mediastinal, hilar or axillary lymphadenopathy. The heart is normal in size.. There is no pericardial effusion. . Main pulmonary artery measures 2.8 cm in diameter. UPPER ABDOMEN: Hepatic steatosis. Cholecystectomy. BONES: The visualized bony thorax is within normal limits. SOFT TISSUES: Unremarkable. IMPRESSION: No pulmonary emboli. Signed by: Dr. Oziel Mendez MD on 12/10/2019 4:30 AM Dictated By: OZIEL MENDEZ MD 9 Transcribed By: MICHELLE on 12/10/19429 COPY TO: KAYLA AYERS DO~ [facility] [address] [place] [address] Patient Name: DANIELLE HUNTER MR #: [id number] : 1975 Age/Sex: 44/F Req #: [id number] Adm Physician: Ordered by: KAYLA AYERS DO Report #: [id number] Location: ER Room/Bed: Procedure: [id number] CT/CT CHEST W Exam Date: 12/10/19 Exam Time: 329 REPORT STATUS: Signed EXAM: CT Chest WITH contrast (PE Protocol) INDICATION: ^CP ^[id number] ^0330 COMPARISON: Same day chest x-ray TECHNIQUE: Chest was scanned utilizing a multidetector helical scanner from the lung apex through the level of the diaphragm after administration of IV contrast. Thin section reconstructions were obtained with special concentration on the pulmonary arteries. Coronal and sagittal reformations were obtained. Dose modulation, iterative reconstruction, and/or weight based adjustment of the mA/kV was utilized to reduce the radiation dose to as low as reasonably achievable. Pulmonary embolism protocol was performed. IV CONTRAST: 100 mL of Isovue-370 COMPLICATIONS: None RADIATION DOSE: Total DLP: 474.58 mGy*cm Estimated effective dose: (DLP x 0.014 x size factor) mSv CTDIvol has been reviewed. It is below the limits set by the Radiation Protocol Committee (RPC). FINDINGS: LINES/ TUBES: None. LUNGS AND AIRWAYS: No filling defect is identified within the pulmonary arteries to the segmental level. The lungs are unremarkable. Airways are normal. PLEURA: The pleural spaces are clear. HEART AND MEDIASTINUM: Calcified inferior left thyroid lobe nodule. No mediastinal, hilar or axillary lymphadenopathy. The heart is normal in size.. There is no pericardial effusion. . Main pulmonary artery measures 2.8 cm in diameter. UPPER ABDOMEN: Hepatic steatosis. Cholecystectomy. BONES: The visualized bony thorax is within normal limits. SOFT TISSUES: Unremarkable. IMPRESSION: No pulmonary emboli. Signed by: Dr. Oziel Mendez MD on 12/10/2019 4:30 AM Dictated By: OZIEL MENDEZ MD 9 Transcribed By: MICHELLE on 12/10/19429 COPY TO: KAYLA AYERS DO~ Procedures 12 Lead ECG Interpretation ECG Interpretation : ECG: ECG 1 Bill Cutter: Interpreted by ED physician Date: Dec 10, 2019 Time: 02:26 Rhythm: sinus rhythm Rate: normal BPM: 73 QRS axis: normal ST segments normal: Yes T waves normal: Yes Clinical Impression: normal ECG Assessment & Plan Medical Decision Making MDM Diff Dx : PE, ACS, PTX, pancreatitis Assessment & Plan Final Impression: (1) Alcohol intoxication Depart Disposition: HOME, SELF-longterm Meds Active Scripts Ondansetron (ONDANSETRON ODT) 8 Mg Tab.rapdis, 4 MG PO Q6H PRN for nausea and vomiting, #20 TAB 0 Refills Prov:VICK REYES MD 12/09/19 Famotidine (FAMOTIDINE) 20 Mg Tab, 20 MG PO BIDAC for 14 Days, TAB Prov:RADHIKA REYNOSO MD 03/05/18 Alprazolam (ALPRAZOLAM) 0.25 Mg Tablet, 0.25 MG PO Q8H PRN for anxiety for 5 Days Prov:RADHIKA REYNOSO MD 03/05/18 Reported Medications Hydroxychloroquine Sulfate (HYDROXYCHLOROQUINE SULFATE) 200 Mg Tablet, 200 MG PO BID 03/03/18 Clonidine Hcl (CLONIDINE HCL) 0.1 Mg Tablet, 1 TAB PO TID, #60 TAB 03/03/18 Duloxetine Hcl (CYMBALTA) 30 Mg Capsule.dr 60 MG PO DAILY, #30 CAP 03/03/18 Hydrochlorothiazide* (ESIDRIX*) 25 Mg Tab, 25 MG PO BID, TAB 03/03/18 KAYLA AYERS DO Dec 10, 2019 02:02
[2019-12-10 02:21] LABS: BASOPHILS % 0.9 % (0.0-1.0); EOSINOPHILS # (AUTO) 0.1 (0.0-0.4); EOSINOPHILS % 1.8 % (0.0-6.0); HEMATOCRIT 37.2 % (34.2-44.1); HEMOGLOBIN 12.5 g/dL (12.0-16.0); LYMPHOCYTES # (AUTO) 1.3 (1.0-3.2); LYMPHOCYTES % 29.2 % (18.0-39.1); MEAN CORPUSCULAR HEMOGLOBIN 29.5 pg (28-32); MEAN CORPUSCULAR HGB CONC 33.6 g/dL (31-35); MEAN CORPUSCULAR VOLUME 87.7 fL (81-99); MONOCYTES # (AUTO) 0.4 (0.2-0.8); MONOCYTES % 9.5 % (4.4-11.3); NEUTROPHILS # (AUTO) 2.6 (2.1-6.9); NEUTROPHILS % 58.4 % (38.7-80.0); PLATELET COUNT 225 x10e3/uL (140-360); RED BLOOD COUNT 4.24 x10e6/uL (3.6-5.1); RED CELL DISTRIBUTION WIDTH 15.6 % (11.7-14.4)
[2019-12-10 02:26] LABS: AMPHETAMINES SCREEN,URINE NEGATIVE (NEGATIVE); BENZODIAZEPINES SCREEN,URINE NEGATIVE (NEGATIVE); PHENCYCLIDINE SCREEN,URINE NEGATIVE (NEGATIVE)
[2019-12-10 02:39] LABS: ALANINE AMINOTRANSFERASE 50 IU/L (0-55); ALBUMIN 4.1 g/dL (3.5-5.0); ALKALINE PHOSPHATASE 98 IU/L (40-150); ANION GAP 16.7 mmol/L (8-16); BLOOD UREA NITROGEN < 5 mg/dL (7-26); CALCIUM 8.7 mg/dL (8.4-10.2); CARBON DIOXIDE 27 mmol/L (22-29); CHLORIDE 96 mmol/L (98-107); CREATINE KINASE 162 IU/L (29-168); CREATININE, SERUM 0.71 mg/dL (0.57-1.11); EST GLOMERULAR FILTRATION RATE > 60 ML/MIN (60-); GLUCOSE 79 mg/dL (74-118); POTASSIUM 3.7 mmol/L (3.5-5.1); SODIUM 136 mmol/L (136-145)
[2019-12-10 02:42] LABS: BUN/CREATININE RATIO 7 (6-25)
[2019-12-10] MEDS ORDERED: SODIUM CHLORIDE 0.9% 1000ML 1,000 ML IV ONE (03:15)
[2019-12-10] MEDS ORDERED: SODIUM CHLORIDE 0.9% 50ML 50 ML ONE (03:36)
[2019-12-10] MEDS ORDERED: IOPAMIDOL 370 MG/ML 200 ML INFUS..BTL INJ ONE (03:36)
--- NOTE | 2019-12-10 03:47 | Diagnostic Imaging Report ---
EXAMINATION: CHEST SINGLE (PORTABLE) INDICATION: ^ERMD ORDER ^[id number] ^0305 ^Y COMPARISON: 03/11/2018 FINDINGS: AP view TUBES and LINES: None. LUNGS: Lungs are well inflated. There is no evidence of pneumonia or pulmonary edema. PLEURA: No pleural effusion or pneumothorax. HEART AND MEDIASTINUM: The cardiomediastinal silhouette is unremarkable. BONES AND SOFT TISSUES: No acute osseous lesion. Soft tissues are unremarkable. UPPER ABDOMEN: No free air under the diaphragm. IMPRESSION: No acute thoracic abnormality. Signed by: Dr. Oziel Barney MD on 12/10/2019 3:44 AM
--- NOTE | 2019-12-10 04:33 | Diagnostic Imaging Report ---
EXAM: CT Chest WITH contrast (PE Protocol) INDICATION: ^CP ^[id number] ^0330 COMPARISON: Same day chest x-ray TECHNIQUE: Chest was scanned utilizing a multidetector helical scanner from the lung apex through the level of the diaphragm after administration of IV contrast. Thin section reconstructions were obtained with special concentration on the pulmonary arteries. Coronal and sagittal reformations were obtained. Dose modulation, iterative reconstruction, and/or weight based adjustment of the mA/kV was utilized to reduce the radiation dose to as low as reasonably achievable. Pulmonary embolism protocol was performed. IV CONTRAST: 100 mL of Isovue-370 COMPLICATIONS: None RADIATION DOSE: Total DLP: 474.58 mGy*cm Estimated effective dose: (DLP x 0.014 x size factor) mSv CTDIvol has been reviewed. It is below the limits set by the Radiation Protocol Committee (RPC). FINDINGS: LINES/ TUBES: None. LUNGS AND AIRWAYS: No filling defect is identified within the pulmonary arteries to the segmental level. The lungs are unremarkable. Airways are normal. PLEURA: The pleural spaces are clear. HEART AND MEDIASTINUM: Calcified inferior left thyroid lobe nodule. No mediastinal, hilar or axillary lymphadenopathy. The heart is normal in size.. There is no pericardial effusion. . Main pulmonary artery measures 2.8 cm in diameter. UPPER ABDOMEN: Hepatic steatosis. Cholecystectomy. BONES: The visualized bony thorax is within normal limits. SOFT TISSUES: Unremarkable. IMPRESSION: No pulmonary emboli. Signed by: Dr. Oziel Barney MD on 12/10/2019 4:30 AM
[2019-12-10 06:37] VITALS: BP 120/84
--- OUTSIDE RECORDS SUMMARY | 2019-12-12 18:59 | XMS REPORT | Continuity of Care Document ---
Author Author [facility] t Organization [facility] Address [address] [place] [address] Phone Unavailable Care Team Providers Care Sewing Machine Operator Name Role Phone NO, PCP PCP Unavailable KAYLA AYERS Attphys Unavailable Ema REYES Attphys Unavailable Cj DRUMMOND Attphys Unavailable Ema TRAN Attphys Unavailable Payers Payer Name Policy Type Policy Number Effective Date Expiration Date Viridiana elias [facility] [id number] 2018 00:00:00 [facility] Problems Condition Name Condition Details Condition Category Status Onset Date Resolution Date Last Treatment Date Treating Clinician Comments Source Pain in right ankle Pain in right ankle Disease Active 2016-07-11 00:00 :00 [facility] Trimalleolar fracture Trimalleolar fracture Disease Active 201 08-10-17 00:00:00 [facility] General weakness General weakness Disease Active 2016-02-02 00:00:00 Jamie Hernández Hypocalcemia Hypocalcemia Problem Active [facility] Hypokalemia Hypokalemia Problem Active [facility] Palpitations Problem Active [facility] Allergies, Adverse Reactions, Alerts Allergy Name Allergy Type Status Severity Reaction(s) Onset Date Inacti ve Date Treating Clinician Comments Source No Known Allergies DA Active U 2019-02-10 00:00:00 [facility] No Known Allergies DA Active U 2017-08-24 00:00:00 [facility] Family History Family Member Diagnosis Comments Start Date Stop Date Source Natural father No Known Problems Leela Hernández Natural mother No Known Problems Leela Hernández Social History Social Habit Start Date Stop Date Quantity Comments Source Sex Assigned At [facility] Alcohol intake 2016-02-02 00:00:00 2016-02-02 00:00:00 Current drinker of alcohol (finding) Jamie Hernández Alcohol Comment 2016-02-02 00:00:00 2016-02-02 00:00:00 occasional Jamie Hernández Smoking Status Start Date Stop Date Source Never smoker Jamie ramirez Medications Ordered Medication Name Filled Medication Name Start Date Stop Da te Current Medication? Ordering Clinician Indication Dosage Frequency Signature (SIG) Comments Components Source Alprazolam Alprazolam 2018-03-05 06:42:00 Yes .25 Every 8 Hours as needed for Anxiety [facility] Famotidine Famotidine 2018-03-05 06:42:00 Yes 20 Twice Daily Before Meals [facility] diclofenac (VOLTAREN) 75 MG EC tablet 2016-02-03 10:53:45 Y es 75mg Q.5D Take 75 mg by mouth 2 (two) times a day. Jamie Hernández DULoxetine (CYMBALTA) 30 MG capsule 2016-02-03 10:53:45 Yes 60mg QD Take 60 mg by mouth daily. Jamie Hernández hydroxychloroquine (PLAQUENIL) 200 mg tablet 2016-02-03 10:53:45 Yes 200mg Q.5D Take 200 mg by mouth 2 (two) times a day. Jamie Hernández Clonidine Hcl Clonidine Hcl Yes 1 Three Times A Day [facility] Duloxetine Hcl (Cymbalta) 30 Mg CAPSULE. Duloxetine Hcl (Cymbalta) 30 Mg CAPSULE. Yes 60 Daily [facility] Hydrochlorothiazide (Esidrix*) 25 Mg TAB Hydrochloroth iazide (Esidrix*) 25 Mg TAB Yes 25 Twice A Day [facility] Hydroxychloroquine Sulfate Hydroxychloroquine Sulfate Yes 200 Twice A Day [facility] Vital Signs Vital Name Observation Time Observation Value Comments Source Body Temperature 2019-11-05 21:43:00 98.9 [degF] [facility] Weight 2019-11-05 19:25:00 190 [lb_av] [facility] BMI (Body Mass Index) 2019-11-05 19:25:00 34.8 kg/m2 [facility] Procedures This patient has no known procedures. Plan of Care Planned Activity Planned Date Details Comments Source Future Scheduled Test 2019-11-07 00:00:00 IMM Influenza Seas onal Nov to April (>/= 19 yrs) [code = IMM Influenza Seasonal Nov to April (>/= 19 yrs)] [facility] Scheduled Test 2019-09-07 00:00:00 INFLUENZA VACCINE [code = INFLUENZA VACCINE] [facility] Scheduled Test 2015 00:00:00 Breast Cancer Scrn (Yearly) [code = Breast Cancer Scrn (Yearly)] [facility] Scheduled Test 2005-12-01 00:00:00 Screening for giovana gnant neoplasm of cervix (procedure) [code = 614704505] [facility] Scheduled Test 2005-12-01 00:00:00 Screening for givoana gnant neoplasm of cervix (procedure) [code = 229022319] [facility] Scheduled Test 1996-12-01 00:00:00 Screening for giovana gnant neoplasm of cervix (procedure) [code = 932365260] [place] [facility] t Instructions Heart Palpitations [facility] Encounters Start Date/Time End Date/Time Encounter Type Admission Type Attendi [facility] Facility Care Department Encounter ID Source 2019-11-05 19:53:00 2019-11-05 21:53:00 Departed Emergency Room [facility] [id number] [facility] 2018-03-11 19:41:00 2018-03-11 23:21:00 Departed Emergency Room 1 SERGE DRUMMOND [facility] [id number] [facility] 2018-03-03 18:32:00 2018-03-05 12:44:00 Discharged Inpatient (obs) 1 LIANG TRAN [facility] [id number] [facility] 2016-08-01 00:00:00 2016-08-01 00:00:00 Outpatient [facility] [id number] [facility] 2016-08-01 00:00:00 2016-08-01 00:00:00 Outpatient [facility] [id number] [facility] 2016-07-14 00:00:00 2016-07-14 00:00:00 Outpatient [facility] [id number] [facility] 2016-07-14 00:00:00 2016-07-14 00:00:00 Outpatient [facility] [id number] [facility] 2016-06-23 00:03:55 2016-06-23 00:03:55 Emergency [facility] [id number] [facility] 2016-06-22 22:23:36 2016-06-22 22:23:36 Emergency [facility] [id number] [facility] 2016-06-22 18:18:30 2016-06-22 18:18:30 Emergency [facility] [id number] [facility] Results Test Description Test Time Test Comments Results Result Comments Source CT CHEST W 2019-12-10 04:23:00 [facility] CENTER[facility]: DANIELLE HUNTER : 1975 Sex: F [place] [address] Patient Name: DANIELLE HUNTER MR #: [id number] : 1975 [facility] 44[id number] Req #: [id number] Adm Physician: Ordered by: KAYLA AYERS DO Report #: [id number] Location: ER Room/Bed: Procedure: [id number] CT/CT CHEST W Exam Date: 12/10/19 Exam Time: 329 REPORT STATUS: Signed EXAM: CT Chest WITH contrast (PE Protocol) INDICATION: CP [id number] COMPARISON: Same day chest x-ray TECHNIQUE: Chest was scanned utilizing a multidetector helical scanner from the lung apex through the level of the diaphragm after administration of IV contrast. Thin section reconstructions were obtained with special concentration on the pulmonary arteries. Coronal and sagittal reformations were obtained. Dose modulation, iterative reconstruction, and/or weight based adjustment of the mA/kV was utilized to reduce the radiation dose to as low as reasonably achievable. Pulmonary embolism protocol was performed. IV CONTRAST: 100 mL of Isovue-370 COMPLICATIONS: None RADIATION DOSE: Total DLP: 474.58 mGy*cm Estimated effective dose: (DLP x 0.014 x size factor) mSv CTDIvol has been reviewed. It is below the limits set by the Radiation Protocol Committee (RPC). FINDINGS: LINES/ TUBES: None. LUNGS AND AIRWAYS: No filling defect is identified within the pulmonary arteries to the segmental level. The lungs are unremarkable. Airways are normal. PLEURA: The pleural spaces are clear. HEART AND MEDIASTINUM: Calcified inferior left thyroid lobe nodule. No mediastinal, hilar or axillary lymphadenopathy. The heart is normal in size.. There is no pericardial effusion. . Main pulmonary artery measures 2.8 cm in diameter. UPPER ABDOMEN: Hepatic steatosis. Cholecystectomy. BONES: The visualized bony thorax is within normal limits. SOFT TISSUES: Unremarkable. IMPRESSION: No pulmonary emboli. Signed by: Dr. Oziel Mendez MD on 12/10/2019 4:30 AM Dictated By: OZIEL MENDEZ MD 9 Transcribed By: MICHELLE on 12/10/19429 COPY TO: KAYLA AYERS DO CHEST SINGLE (PORTABLE) 2019-12-10 03:43:00 [facility] : 1975 Sex: F [place] [address] Patient Name: DANIELLE HUNTER MR #: [id number] : 1975 Age/Sex: 44/F Req #: [id number] Adm Physician: Ordered by: KAYLA AYERS DO Report #: [id number] Location: ER Room/Bed: Procedure: [id number] DX/CHEST SINGLE (PORTABLE) Exam Date: 12/10/19 Exam Time: 0305 REPORT STATUS: Signed EXAMINATION: CHEST SINGLE (POR TABLE) INDICATION: ERMD ORDER [id number] Y COMPARISON: 03/11/2018 FINDINGS: AP view TUBES and LINES: None. LUNGS: Lungs are well inflated. There is no evidence of pneumonia or pulmonary edema. PLEURA: No pleural effusion or pneumothorax. HEART AND MEDIASTINUM: The cardiomediastinal silhouette is unremarkable. BONES AND SOFT TISSUES: No acute osseous lesion. Soft tissues are unremarkable. UPPER ABDOMEN: No free air under the diaphragm. IMPRESSION: No acute thoracic abnormality. Signed by: Dr. Oziel Mendez MD on 12/10/2019 3:44 AM Dictated By: OZIEL MENDEZ MD 3 Transcribed By: MICHELLE on 12/10/19343 COPY TO: KAYLA AYERS DO CXR 2 VIEW - HOPD 2019-12-09 20:47:00 [facility] : 1975 Sex: F [place] [address] Patient Name: DANIELLE HUNTER MR #: [id number] : 1975 Age/Sex: 44/F Req #: [id number] [facility] Physician: Ordered by: VICK REYES MD Report #: [id number] Location: [facility] Room/Bed: Procedure: [id number] HOPD/CXR 2 VIEW - HOPD Exam Date: 12/09/19 Exam Time: 1840 REPORT STATUS: Signed EXAMINATION: CXR 2 VIEW - HOPD INDICATION: sob and chest pain COMPARISON: None FINDINGS: TUBES and LINES: None. LUNGS: Normal lung volumes. Lungs are clear. No consolidations. PLEURA: No pleural effusion or pneumothorax. HEART AND MEDIASTINUM: The cardiomediastinal silhouette is unremarkable. BONES AND SOFT TISSUES: No acute osseous lesion. Soft tissues are unremarkab le. UPPER ABDOMEN: No free air under the diaphragm. IMPRESSION: No acute thoracic radiographic abnormality. Signed by: Gavin Monsivais MD on 12/09/2019 8:47 PM Dictated By: GAVIN MONSIVAIS MD 46 Transcribed By: MICHELLE on 12/09/192046 COPY TO: VICK REYES MD Blood leukocytes automated count (number/volume) 2019-11-05 19:39:00 Test Item White Blood Count (test code = 6690-2) 6.00 4.8-10.8 [facility] automated count (number/volume)2019-11-05 19:39:00* Test Item Value Reference Range Interpretation Comments Red Blood Count (test code = 789-8) 4.18 3.6-5.1 [facility] hemoglobin measurement (moles/volume)2019-11-05 19:39:00* Test Item Value Reference Range Interpretation Comments Hemoglobin (test code = 72473-5) 12.1 12.0-16.0 [facility] blood hematocrit (volume fraction)2019-11-05 19:39:00* Test Item Value Reference Range Interpretation Comments Hematocrit (test code = 4544-3) 36.8 34.2-44.1 [facility] erythrocyte mean corpuscular [id number] 19:39:00* Test Item Value Reference Range Interpretation Comments Mean Corpuscular Volume (test code = 787-2) 88.0 81-99 [facility] erythrocyte mean corpuscular hemoglobin (mass per erythrocyte)2019-11-05 19:39:00* Test Item Value Reference Range Interpretation Comments Mean Corpuscular Hemoglobin (test code = 785-6) 28.9 28-32 [facility] erythrocyte mean corpuscular hemoglobin concentration measurement (mass/volume)2019-11-05 19:39:00* Test Item Value Reference Range Interpretation Comments Mean Corpuscular Hemoglobin Concent (test code = 786-4) 32.9 31-35 [facility] SouthRDW XxsJf-[id number] 19:39:00* Test Item Value Reference Range Interpretation Comments Red Cell Distribution Width (test code = 84483-7) 15.9 11.7 -14.4 [facility] blood platelet count (count/volume)2019-11-05 19:39:00* Test Item Value Reference Range Interpretation Comments Platelet Count (test code = 777-3) 241 140-360 [facility] blood segmented neutrophil count as percentage of total mfugwbucna2681-51-50 19:39:00* Test Item Value Reference Range Interpretation Comments Neutrophils (%) (Auto) (test code = 19165-2) 53.5 38.7-80.0 [facility] SouthAutcommunity healthed blood lymphocyte count as percentage ot total ehrltrqqeu9851-59-03 19:39:00* Test Item Value Reference Range Interpretation Comments Lymphocytes (%) (Auto) (test code = 736-9) 32.5 18.0-39.1 [facility] South[facility] blood monocyte count as percentage of total mwnucbmvai3365-34-72 19:39:00* Test Item Value Reference Range Interpretation Comments Monocytes (%) (Auto) (test code = 5905-5) 11.5 4.4-11.3 [facility] blood eosinophil count as percentage of total wkysltckub3108-37-58 19:39:00* Test Item Value Reference Range Interpretation Comments Eosinophils (%) (Auto) (test code = 713-8) 1.5 0.0-6.0 [facility] South[facility] blood basophil count as percentage of total lrtnosunoa7212-82-32 19:39:00* Test Item Value Reference Range Interpretation Comments Basophils (%) (Auto) (test code = 706-2) 0.8 0.0-1.0 [facility] SouthFluoroscopic procedure less than one hour sejyibyn7094-43-91 19:39:00* Test Item Value Reference Range Interpretation Comments IM GRANULOCYTES % (test code = IM GRANULOCYTES %) 0.2 0.0- 1.0 [facility] South[facility] blood neutrophil count 2019-11-05 19:39:00* Test Item Value Reference Range Interpretation Comments Neutrophils # (Auto) (test code = 751-8) 3.2 2.1-6.9 [facility] lymphocytes count (number/volume) 2019-11-05 19:39:00* Test Item Value Reference Range Interpretation Comments Lymphocytes # (Auto) (test code = 87579-3) 2.0 1.0-3.2 [facility] monocytes automated count (number/volume)2019-11-05 19:39:00* Test Item Value Reference Range Interpretation Comments Monocytes # (Auto) (test code = 742-7) 0.7 0.2-0.8 [facility] blood eosinophil count 2019-11-05 19:39:00* Test Item Value Reference Range Interpretation Comments Eosinophils # (Auto) (test code = 711-2) 0.1 0.0-0.4 [facility] SouthAutom[facility] blood basophil count (count/volume)2019-11-05 19:39:00* Test Item Value Reference Range Interpretation Comments Basophils # (Auto) (test code = 704-7) 0.1 0.0-0.1 [facility] SouthFluoroscopic procedure less than one hour iysqhhpg9550-71-70 19:39:00* Test Item Value Reference Range Interpretation Comments Absolute Immature Granulocyte (auto (kristina t code = Absolute Immature Granulocyte (auto) 0.01 0-0.1 [facility] sodium measurement (moles/volume)2019-11-05 19:39:00* Test Item Value Reference Range Interpretation Comments Sodium Level (test code = 2951-2) 134 136-145 [facility] Atlanta[facility]um or plasma potassium measurement (moles/volume)2019-11-05 19:39:00* Test Item Value Reference Range Interpretation Comments Potassium Level (test code = 2823-3) 3.6 3.5-5.1 [facility] Atlanta[facility] or plasma chloride measurement (moles/volume)2019-11-05 19:39:00* Test Item Value Reference Range Interpretation Comments Chloride Level (test code = 2075-0) 97 98-107 [facility] Atlanta[facility]um or plasma carbon dioxide, total measurement (moles/volume)2019-11-05 19:39:00* Test Item Value Reference Range Interpretation Comments Carbon Dioxide Level (test code = 2028-9) 24 - [facility] Atlanta[facility]um or plasma anion cor6118-91-45 19:39:00* Test Item Value Reference Range Interpretation Comments Anion Gap (test code = 69976-0) 16.6 8-16 [facility] Atlanta[facility]um or plasma urea nitrogen measurement (mass/volume)2019-11-05 19:39:00* Test Item Value Reference Range Interpretation Comments Blood Urea Nitrogen (test code = 3094-0) 5 7-26 [facility] plasma creatinine measurement (mass/volume)2019-11-05 19:39:00* Test Item Value Reference Range Interpretation Comments Creatinine (test code = 2160-0) 0.74 0.57-1.11 [facility] Atlanta[facility]um or plasma urea nitrogen/creatinine mass frawo9054-46-42 19:39:00* Test Item Value Reference Range Interpretation Comments BUN/Creatinine Ratio (test code = 3097-3) 7 6-25 [facility] SouthEstimated glomerular filtration rate (GFR) qdtrqiwybefqh5739-06-68 19:39:00* Test Item Value Reference Range Interpretation Comments Estimat Glomerular Filtration Rate (test code = 935640146) > 60 >60 Ranges were taken from the National Kidney Disease Education Program and the [facility] Foundation literature.Reference ranges:60 or greater: Smuxdj67-02 ( for 3 consecutive months): Chronic kidney disease 15 or less: Kidney failureCHRISTUS [facility]i – SouthGlucose fszbzkeywyk1435-83-80 19:39:00* Test Item Value Reference Range Interpretation Comments Glucose Level (test code = PNT5948) 89 74-118 [facility] Atlanta[facility]um or plasma calcium measurement (mass/volume)2019-11-05 19:39:00* Test Item Value Reference Range Interpretation Comments Calcium Level (test code = 18628-4) 8.8 8.4-10.2 [facility] Atlanta[facility] or plasma total bilirubin measurement (mass/volume)2019-11-05 19:39:00* Test Item Value Reference Range Interpretation Comments Total Bilirubin (test code = 1975-2) 0.7 0.2-1.2 [facility] SouthFluoroscopic procedure less than one hour rzmfsgkl3600-68-67 19:39:00* Test Item Value Reference Range Interpretation Comments Aspartate Amino Transf (AST/SGOT) (test code = Aspartate Amino Transf (AST/SGOT)) 94 5-34 [facility] Atlanta[facility]um or plasma alanine aminotransferase measurement (enzymatic activity/volume)2019-11-05 19:39:00* Test Item Value Reference Range Interpretation Comments Alanine Aminotransferase (ALT/SGPT) (test code = 1742-6) 97 0-55 [facility] Atlanta[facility]um or plasma protein measurement (mass/volume)2019-11-05 19:39:00* Test Item Value Reference Range Interpretation Comments Total Protein (test code = 2885-2) 8.4 6.5-8.1 [facility] Atlanta[facility] or plasma albumin measurement (mass/volume)2019-11-05 19:39:00* Test Item Value Reference Range Interpretation Comments Albumin (test code = 1751-7) 4.6 3.5-5.0 [facility]Plasma globulin measurement (mass/volume) 2019-11-05 19:39:00* Test Item Value Reference Range Interpretation Comments Globulin (test code = 66706-3) 3.8 2.3-3.5 [facility] Atlanta[facility] or plasma albumin/globulin mass [id number] 19:39:00* Test Item Value Reference Range Interpretation Comments Albumin/Globulin Ratio (test code = 1759-0) 1.2 0.8-2.0 [facility] Atlanta[facility]um or plasma alkaline phosphatase measurement (enzymatic activity/volume)2019-11-05 19:39:00* Test Item Value Reference Range Interpretation Comments Alkaline Phosphatase (test code = 6768-6) 164 40-150 [facility] Atlanta[facility]um or plasma creatine kinase measurement (enzymatic activity/volume)2019-11-05 19:39:00* Test Item Value Reference Range Interpretation Comments Creatine Kinase (test code = 2157-6) 174 29-168 [facility] Atlanta[facility]um or plasma creatine kinase MB measurement (mass/volume)2019-11-05 19:39:00* Test Item Value Reference Range Interpretation Comments Creatine Kinase MB (test code = 58469-5) 1.20 0-5.0 [facility] SouthTroponin I measurement by highly sensitive enzyme zebhijbgnnw9318-76-18 19:39:00* Test Item Value Reference Range Interpretation Comments Troponin I (test code = 93393-0) 0.006 0-0.300 [facility] SouthDRUGS OF ABUSE [id number] 17:48:00 * Test Item Value Reference Range Interpretation Comments UR COCAINE (test code = COCAU) NEGATIVE NEGATIVE DETECTION CUT OFF: 150 ng/mL UR CANNABINOIDS (test code = CANU) NEGATIVE NEGATIVE DETECTION CUT OFF: 50 ng/mL UR AMPHETAMINE (test code = AMPHU) NEGATIVE NEGATIVE DETECTION CUT OFF: 500 ng/mL UR BARBITURATE QUAL (test code = BARBQLU) NEGATIVE NEGATIVE DETECTION CUT OFF: 200 ng/mL UR BENZODIAZEPINE (test code = BENZU) NEGATIVE NEGATIVE DETECTION CUT OFF: 150 ng/mL UR OPIATES QUAL (test code = OPIAQLU) POSITIVE NEGATIVE A RESULTS CALLED TO TACHO PEMBERTONREAD BACK & CONFIRMED? YES.BY STEPHAN 02/10/19 0728. .DETECTION CUT OFF: 100 ng/mL UR PHENCYCLIDINE (PCP) (test code = PHENCU) NEGATIVE NEGATIVE DETECTION CUT OFF: 25 ng/mL UA RFLX MICR CULT IF [id number] 17:21:00* Test Item Value Reference Range Interpretation Comments UA COLOR (test code = COLU) YELLOW YELLOW UA APPEARANCE (test code = APPU) CLEAR CLEAR UA GLUCOSE DIPSTICK (test code = DGLUU) NEGATIVE NEG UA BILIRUBIN DIPSTICK (test code = BILU) NEGATIVE NEG UA KETONE DIPSTICK (test code = KETU) TRACE NEG A UA SPECIFIC GRAVITY (test code = SGU) 1.004 1.001-1.035 N UA BLOOD DIPSTICK (test code = LUCRETIA) 3+ NEG A UA PH DIPSTICK (test code = JASON) 7.0 5-9 UA PROTEIN DIPSTICK (test code = PROU) NEGATIVE NEG UA UROBILINIOGEN DIPSTICK (test code = URO) NEGATIVE mg/dL NEG UA NITRITE DIPSTICK (test code = JOSUÉ) NEG NEG UA LEUKOCYTE ESTERASE DIPSTICK (test code = LEUU) NEG NEG UA WBC (test code = WBCU) 0-2 #/hpf NONE SEEN UA RBC (test code = RBCU) 0-2 #/hpf NONE SEEN UA EPITHELIAL CELLS (test code = EPIU) RARE #/HPF RARE-FEW UA BACTERIA (test code = BACU) RARE /HPF RARE-FEW UA MUCUS (test code = MUCU) RARE NONE SEEN Indication for culture: Suprapubic PainUR HCG [id number] 17:21:00* Test Item Value Reference Range Interpretation Comments UR HCG QUAL (test code = HCGQLU) NEGATIVE 1. Very dilute urine specimens, as indicated by a lowspecific gravity, may not contain customer loyalty representative levels ofhCG. 2. False negative results may occur when the levels of hCGare below the sensitivity level of the test. If is still suspected, a first morningurine specimen should be collected 48 hours later andtested. Indication for culture: Suprapubic PainUA RFLX MICR CULT IF INDICATED 2019-02-10 17:17:00* Test Item Value Reference Range Interpretation Comments UA COLOR (test code = COLU) YELLOW UA APPEARANCE (test code = APPU) CLEAR UA GLUCOSE DIPSTICK (test code = DGLUU) NEGATIVE UA BILIRUBIN DIPSTICK (test code = BILU) NEGATIVE UA KETONE DIPSTICK (test code = KETU) NEGATIVE UA SPECIFIC GRAVITY (test code = SGU) 1.001-1.035 UA BLOOD DIPSTICK (test code = LUCRETIA) NEGATIVE UA PH DIPSTICK (test code = JASON) 5-9 UA PROTEIN DIPSTICK (test code = PROU) NEGATIVE UA UROBILINIOGEN DIPSTICK (test code = URO) mg/dL NEG UA NITRITE DIPSTICK (test code = JOSUÉ) NEGATIVE UA LEUKOCYTE ESTERASE DIPSTICK (test code = LEUU) NEG UA WBC (test code = WBCU) #/hpf NONE SEEN UA EPITHELIAL CELLS (test code = EPIU) #/HPF RARE-FEW Indication for culture: Suprapubic PainUR HCG [id number] 17:17:00* Test Item Value Reference Range Interpretation Comments UR HCG QUAL (test code = HCGQLU) NEGATIVE 1. Very dilute urine specimens, as indicated by a lowspecific gravity, may not contain customer loyalty representative levels ofhCG. 2. False negative results may occur when the levels of hCGare below the sensitivity level of the test. If is still suspected, a first morningurine specimen should be collected 48 hours later andtested. Indication for culture: Suprapubic PainCOMPREHENSIVE METABOLIC PANEL 2019-02-10 16:36:00* Test Item Value Reference Range Interpretation Comments SODIUM (test code = NA) 131 mEq/L 135-145 L POTASSIUM (test code = K) 3.7 mEq/L 3.5-5.0 N CHLORIDE (test code = CL) 93 mEq/L 100-115 L CARBON DIOXIDE (test code = CO2) 29 mEq/L 22-31 N ANION GAP (test code = GAP) 12.70 10-20 N GLUCOSE (test code = GLU) 109 mg/dL 65-110 N BLOOD UREA NITROGEN (test code = BUN) 7 mg/dL 7-18 N GLOMERULAR FILTRATION RATE (test code = GFR) 68 ml/min >60 N CREATININE (test code = CREAT) 0.9 mg/dL 0.5-1.0 N TOTAL PROTEIN (test code = PROT) 8.8 gm/dL 6.3-8.2 H ALBUMIN (test code = ALB) 3.9 gm/dL 3.4-4.8 N CALCIUM (test code = CA) 8.6 mg/dL 8.4-10.2 N BILIRUBIN TOTAL (test code = BILT) 1.5 mg/dL 0.2-1.0 H SGOT/AST (test code = AST) 42 units/L 15-37 H SGPT/ALT (test code = ALT) 46 units/L 12-78 N ALKALINE PHOSPHATASE TOTAL (test code = ALKP) 94 units/L 46-116 N CREATINE KINASE (CK)2019-02-10 16:36:00* Test Item Value Reference Range Interpretation Comments CREATINE KINASE (CK) (test code = CK) 194 Units/L 26-192 H [id number]-[id number] 16:36:00* Test Item Value Reference Range Interpretation Comments TROPONIN-I (test code = TROPI) <0.017 ng/mL <0.056 N COMPREHENSIVE METABOLIC [id number] 16:29:00* Test Item Value Reference Range Interpretation Comments SODIUM (test code = NA) 131 mEq/L 135-145 L POTASSIUM (test code = K) 3.7 mEq/L 3.5-5.0 N CHLORIDE (test code = CL) 93 mEq/L 100-115 L CARBON DIOXIDE (test code = CO2) 29 mEq/L 22-31 N ANION GAP (test code = GAP) 12.70 10-20 N GLUCOSE (test code = GLU) 109 mg/dL 65-110 N BLOOD UREA NITROGEN (test code = BUN) mg/dL 7-18 N GLOMERULAR FILTRATION RATE (test code = GFR) 68 ml/min >60 N CREATININE (test code = CREAT) 0.9 mg/dL 0.5-1.0 N TOTAL PROTEIN (test code = PROT) 8.8 gm/dL 6.3-8.2 H ALBUMIN (test code = ALB) 3.9 gm/dL 3.4-4.8 N CALCIUM (test code = CA) 8.6 mg/dL 8.4-10.2 N BILIRUBIN TOTAL (test code = BILT) 1.5 mg/dL 0.2-1.0 H SGOT/AST (test code = AST) 42 units/L 15-37 H SGPT/ALT (test code = ALT) 46 units/L 12-78 N ALKALINE PHOSPHATASE TOTAL (test code = ALKP) 94 units/L 46-116 N CREATINE KINASE (CK)2019-02-10 16:29:00* Test Item Value Reference Range Interpretation Comments CREATINE KINASE (CK) (test code = CK) 194 Units/L 26-192 H [id number] 16:29:00* Test Item Value Reference Range Interpretation Comments TROPONIN-I (test code = TROPI) <0.017 ng/mL <0.056 N TROPONIN I [id number] 16:01:00* Test Item Value Reference Range Interpretation Comments TROPONIN I RAPID (test code = TROPIRAP) 0.00 ng/mL 0.00-0.08 N CBC W/AUTO [id number] 16:01:00* Test Item Value Reference Range Interpretation Comments WHITE BLOOD CELL (test code = WBC) 7.3 K/mm3 6.6-12.1 N RED BLOOD CELL (test code = RBC) 4.35 M/mm3 3.45-5.01 N HEMOGLOBIN (test code = HGB) 11.9 g/dL 10.7-13.9 N HEMATOCRIT (test code = HCT) 37.4 % 32.1-42.1 N MEAN CELL VOLUME (test code = MCV) 86 fL 84.1-94.8 N MEAN CELL HGB (test code = MCH) 27.4 pg 27-35 N MEAN CELL HGB CONCETRATION (test code = MCHC) 31.8 gm/dL 32.2-34. 1 L RED CELL DISTRIBUTION WIDTH (test code = RDW) 15.5 % 12.4-16. 5 N PLATELET COUNT (test code = PLT) 367 K/mm3 133-385 N IMMATURE PLATELET FRACTION (test code = IPF) 0.0 % 0.0-10.8 N MEAN PLATELET VOLUME (test code = MPV) 8.9 fl 9.1-12.7 L NEUTROPHIL % (test code = NT%) 73.9 % 56.5-79.4 N LYMPHOCYTE % (test code = LY%) 16.1 % 14.3-34.3 N MONOCYTE % (test code = MO%) 8.3 % 5.1-10.4 N EOSINOPHIL % (test code = EO%) 0.6 % 0.1-3.0 N BASOPHIL % (test code = BA%) 0.7 % 0.1-1.0 N NEUTROPHIL # (test code = NT#) 5.4 K/mm3 LYMPHOCYTE # (test code = LY#) 1.2 K/mm3 MONOCYTE # (test code = MO#) 0.6 K/mm3 EOSINOPHIL # (test code = EO#) 0.04 K/mm3 BASOPHIL # (test code = BA#) 0.1 K/mm3 RBC MORPHOLOGY REQUIRED (test code = RBCM) NORMAL NORMAL PLATELET MORPHOLOGY REQUIRED (test code = PLTMR) NORMAL CECELIA L GASTRIC,[id number] 13:43:00 RUN DATE: 05/04/18 [facility] - Lab PAGE 1 RUN TIME: 1343 Specimen Inqui ry RUN USER: INTERFACE PATIENT: DANIELLE HUNTER ACCT #: [id number] LOC: JoseDSU U #: [id number] AGE/SX: 42/F ROOM: RE05/03/18[facility] DR: Julio Rondon MD : 75 BED: DIS: STATUS: [facility] TLOC: SPEC #: [id number] RECD: 05/03/18 STATUS: ALEJANDRO RELeon #: [id number] MARY: 05/03/18 [facility] DR: Julio Rondon MD ENTERED: 05/03/18 SP TYPE: GASTRIC BX OTHR DR: Yuliana Armendariz MD ORDERED: GROSS COPIES TO: Yuliana Rose MD [address] [place] [address] Julio Rondon MD [address] 1958 [address] [place] [id number] PROCEDURES: GROSS (05/04/18-1319) TISSUES: 1. ANTRUM - BX COLD 2. BODY BIOPSY OF STOMACH - COLD 3. COLON, NOS - RANDOM COLD CLINICAL HISTORY COLLECTION DATE: 05/03/18 DIARRHEA, NAUSEA FINAL DIAGNOSIS Stomach, antrum, bio psy: REACTIVE GASTROPATHY NO INTESTINAL METAPLASIA, DYSPLASIA OR M ALIGNANCY IDENTIFIED NO DIAGNOSTIC HELICOBACTER IDENTIFIED Stomach, body, biopsy: OXYNTIC GASTRIC MUCOSA WITH MINIMAL FOCAL CHRONIC INFLAMMA TION NEGATIVE FOR INTESTINAL METAPLASIA, DYSPLASIA OR MALIGNANCY Co karlee, random biopsy: UNREMARKABLE COLONIC MUCOSA WITH NO SIGNIFICANT INFLA MMATION, DYSPLASIA OR MALIGNANCY NO HISTOLOGIC FEATURES OF MICRO SCOPY COLITIS IDENTIFIED FA/sm STEFANIE MUKHERJEE ON NEXT PAGE RUN DATE: 05/04/18 [facility] - Lab PAGE 2 RUN TIME: 1343 Specimen Inquiry RUN USER: INTERFACE SPEC #: [id number] ATIENT: DANIELLE HUNTER #[id number] (Continued) FINAL DIAGNOSIS (Continued) D [id number] X 3, 25980 MA CROSCOPIC The first specimen is received in formalin, labeled with the patien t's name, identified as "antrum bx", and consists of two clemons-pink biopsy tissu e measuring 0.3 cm each, submitted as (1) for H E and Giemsa stains. The second specimen is received in formalin, labeled with the patient's name, carly ntified as "body of stomach bx ", and consists of two clemons-pink biopsy tissue m easuring 0.4 and 0.5 cm, submitted as (2). The third specimen is recei raymond in formalin, labeled with the patient's name, identified as "random colon bx", and consists of three clemons-pink biopsy tissue measuring 0.2, 0.3, and 0.4 cm, submitted as (3). GROSS PERFORMED AT [facility] [address] [facility] [place] [place] [address] (p)[phone] MICROSCOPIC All of the stains, including any con trols performed, stain appropriately. MICROSCOPIC PERFORMED AT [facility] [address] [facility] [place] [address] (p)[phone] PERFORMING SITE Diagnosis performed at: [facility], [place] [address] [place] [address] Signed SIGNATURE ON FILE Jas Alicea MD 05/04/18 1343 END OF REPORT BASIC METABOLIC [id number] 12:43:00* Test Item Value Reference Range Interpretation Comments SODIUM (test code = NA) 133 mmol/L 136-145 L POTASSIUM (test code = K) 3.2 mmol/L 3.5-5.1 L CHLORIDE (test code = CL) 92.0 mmol/L 98-107 L CARBON DIOXIDE (test code = CO2) 30.0 mmol/L 21-32 N ANION GAP (test code = GAP) 14.2 10-20 N GLUCOSE (test code = GLU) 88 mg/dL 74-106 N BLOOD UREA NITROGEN (test code = BUN) 1 mg/dL 7-18 L GLOMERULAR FILTRATION RATE (test code = GFR) > 60 mL/min >=60 Estimated GFR by using Modified MDRD formula.Chronic kidney disease is defined as either kidney damageor GFR <60 mL/min/1.73 m2 for >3 months. CREATININE (test code = CREAT) 0.60 mg/dL 0.55-1.02 N Note change in reference range due to change in reagent. BUN/CREATININE RATIO (test code = BUN/CREA) 1.7 10-20 L CALCIUM (test code = CA) 7.7 mg/dL 8.5-10.1 L Differential Total Cells [id number] 22:01:00* Test Item Value Reference Range Interpretation Comments Differential Total Cells Counted (test code = Differen tial Total Cells Counted) 100 [facility]utrophils % (Manual)2018-03-11 22:01:00 * Test Item Value Reference Range Interpretation Comments Neutrophils % (Manual) (test code = 44581-4) 68 40-74 [facility] SouthBand Neutrophils %2018-03-11 22:01:00* Test Item Value Reference Range Interpretation Comments Band Neutrophils % (test code = 764-1) 2 [facility] SouthLymphocytes % (Manual)2018-03-11 22:01:00 * Test Item Value Reference Range Interpretation Comments Lymphocytes % (Manual) (test code = 737-7) 27 19-48 [facility] SouthMonocytes % (Manual)2018-03-11 22:01:00* Test Item Value Reference Range Interpretation Comments Monocytes % (Manual) (test code = 744-3) 1 3.4-9.0 L [facility] SouthEosinophils % (Manual)2018-03-11 22:01:00 * Test Item Value Reference Range Interpretation Comments Eosinophils % (Manual) (test code = 714-6) 2 0-7 [facility] SouthPlatelet Rxlxsuxv1200-88-08 22:01:00* Test Item Value Reference Range Interpretation Comments Platelet Estimate (test code = 05057-6) ADEQUATE [facility] SouthPlatelet Morphology [id number] 22:01:00* Test Item Value Reference Range Interpretation Comments Platelet Morphology Comment (test code = 00167-9) NORMAL [facility] SouthRed Cell Morphology [id number] 22:01:00* Test Item Value Reference Range Interpretation Comments Red Cell Morphology Comment (test code = 6742-1) NORMAL [facility] SouthUrine [id number] 21:33:00* Test Item Value Reference Range Interpretation Comments Urine WBC (test code = 5821-4) 0-5 0-5 [facility] SouthUrine [id number] 21:33:00* Test Item Value Reference Range Interpretation Comments Urine RBC (test code = 65009-0) 0-5 0-5 [facility] SouthUrine Gfvbthqv0501-37-21 21:33:00* Test Item Value Reference Range Interpretation Comments Urine Bacteria (test code = 46689-7) FEW NONE [facility] SouthUrine Epithelial Hutgk2603-34-56 21:33:00 * Test Item Value Reference Range Interpretation Comments Urine Epithelial Cells (test code = 87714-1) MANY NONE [facility] SouthUrine Kbctl4981-29-27 21:31:00* Test Item Value Reference Range Interpretation Comments Urine Color (test code = 5778-6) YELLOW YELLOW [facility] SouthUrine Budftmy1726-78-24 21:31:00* Test Item Value Reference Range Interpretation Comments Urine Clarity (test code = 29883-9) CLEAR CLEAR [facility] SouthUrine Specific Kwfjqnw6098-30-35 21:31:00 * Test Item Value Reference Range Interpretation Comments Urine Specific [place] (test code = 5811-5) 1.005 1.010-1.02 5 L [facility] SouthUrine [id number] 21:31:00* Test Item Value Reference Range Interpretation Comments Urine pH (test code = 30189-4) 7 5-7 [facility] Leukocyte Jojmjxlz6900-75-13 21:31:00* Test Item Value Reference Range Interpretation Comments Urine Leukocyte Esterase (test code = 5799-2) NEGATIVE NEGATIVE [facility] Ocvcohj0716-28-98 21:31:00* Test Item Value Reference Range Interpretation Comments Urine Nitrite (test code = 17082-8) NEGATIVE NEGATIVE [facility] Celuuzn7335-46-76 21:31:00* Test Item Value Reference Range Interpretation Comments Urine Protein (test code = 5804-0) NEGATIVE NEGATIVE [facility] Glucose (UA)2018-03-11 21:31:00* Test Item Value Reference Range Interpretation Comments Urine Glucose (UA) (test code = 2349-9) NEGATIVE NEGATIVE [facility] Krtpctz4789-19-59 21:31:00* Test Item Value Reference Range Interpretation Comments Urine Ketones (test code = 49364-3) NEGATIVE NEGATIVE [facility] Cnkyyqpgkvpl2937-39-87 21:31:00* Test Item Value Reference Range Interpretation Comments Urine Urobilinogen (test code = 64436-0) 0.2 0.2-1 [facility] Mgztfpnmx6612-43-16 21:31:00* Test Item Value Reference Range Interpretation Comments Urine Bilirubin (test code = 1978-6) NEGATIVE NEGATIVE [facility] SouthU[facility] Llsci0633-46-01 21:31:00* Test Item Value Reference Range Interpretation Comments Urine Blood (test code = 40821-6) NEGATIVE NEGATIVE [facility] Opiates Dbizfn4455-74-33 21:28:00* Test Item Value Reference Range Interpretation Comments Urine Opiates Screen (test code = 29386-7) NEGATIVE NEGATIVE ALL TESTS PERFORMED MANUALLY ON BIORAD TOX/SEE TESTCHRISTUS [facility] – SouthUrine Barbiturates Unyuaj0861-33-95 21:28:00* Test Item Value Reference Range Interpretation Comments Urine Barbiturates Screen (test code = 640094622) NEGATIVE NEGA TIVE [facility] Phencyclidine Lfudma2741-67-06 21:28:00* Test Item Value Reference Range Interpretation Comments Urine Phencyclidine Screen (test code = 19380-6) NEGATIVE NEGAT RADHA [facility] Amphetamines Rtkxwj9481-23-24 21:28:00* Test Item Value Reference Range Interpretation Comments Urine Amphetamines Screen (test code = 50908-2) NEGATIVE NEGATI VE [facility] Methamphetamines Lxryld7270-87-14 21:28:00* Test Item Value Reference Range Interpretation Comments Urine Methamphetamines Screen (test code = Urine Metha mphetamines Screen) NEGATIVE NEGATIVE [facility] Benzodiazepines Ccdava7174-68-33 21:28:00* Test Item Value Reference Range Interpretation Comments Urine Benzodiazepines Screen (test code = 90288-8) NEGATIVE NEG ATIVE [facility] Cocaine Luajrb2078-74-73 21:28:00* Test Item Value Reference Range Interpretation Comments Urine Cocaine Screen (test code = 3398-5) NEGATIVE NEGATIVE [facility] Cannabinoids Jfxzxn0078-23-06 21:28:00* Test Item Value Reference Range Interpretation Comments Urine Cannabinoids Screen (test code = 67082-2) NEGATIVE NEGATI VE THESE RESULTS ARE FOR MEDICAL TREATMENT ONLYTHIS REPORT CONTAINS UNCONFIR MED SCREENING RESULTS*POSITIVE RESULTS WILL BE CONFIRMED BY REFERENCE LAB UPON R EQUEST CUT-OFFDRUG CLASS CONCENTRATION ng/mLAmphetamines 1000Methamphetamines 1000Cocaine 300Opiate 300Phencyc lidine 25Cannabinoid 50Barbiturates 300Benzodiazepine 300Methadone 300[facility] CenterU[facility] Methadone Oyyzeu3657-11-87 21:28:00* Test Item Value Reference Range Interpretation Comments Urine Methadone Screen (test code = 28748-2) NEGATIVE NEGATIVE THESE RESULTS ARE FOR MEDICAL TREATMENT ONLYTHIS REPORT CONTAINS UNCONFIR MED SCREENING RESULTS*POSITIVE RESULTS WILL BE CONFIRMED BY REFERENCE LAB UPON R EQUEST CUT-OFFDRUG CLASS CONCENTRATION ng/mLAmphetamines 1000Methamphetamines 1000Cocaine Metabolite 300Opiate 300Phencyc lidine 25Cannabinoid 50Barbiturates 300Benzodiazepine 300Methadone 300[facility] CenterIonized Mekpdfh7274-21-54 21:27:00* Test Item Value Reference Range Interpretation Comments Ionized Calcium (test code = 34837-4) 0.8 1.09-1.30 L [facility] SouthEthyl Alcohol Jzqda5670-97-21 20:51:00* Test Item Value Reference Range Interpretation Comments Ethyl Alcohol Level (test code = 5643-2) < 10.0 0.0-10.0 [facility] SouthCreatine Kinase [id number] 20:50:00* Test Item Value Reference Range Interpretation Comments Creatine Kinase MB (test code = 32796-5) 1.10 0-5.0 [facility] SouthTroponin [id number] 20:50:00* Test Item Value Reference Range Interpretation Comments Troponin I (test code = SYF5808) < 0.001 0-0.300 [facility]odium Dttkc5372-03-89 20:34:00* Test Item Value Reference Range Interpretation Comments Sodium Level (test code = 2951-2) 130 136-145 L [facility] SouthPotassium Rldxh0750-13-87 20:34:00* Test Item Value Reference Range Interpretation Comments Potassium Level (test code = 2823-3) 2.9 3.5-5.1 LL Results repeated and called to GRIFFIN STOVALL RN at 2032 on 03/11/18 by Liza angeles. Read back and verified.[facility] SouthChloride Kbtsh2655-95-82 20:34:00* Test Item Value Reference Range Interpretation Comments Chloride Level (test code = 2075-0) 90 98-107 L [facility] SouthCarbon Dioxide Smqdv8415-05-38 20:34:00* Test Item Value Reference Range Interpretation Comments Carbon Dioxide Level (test code = 2028-9) 28 22-29 [facility] SouthAnion Oif2477-13-06 20:34:00* Test Item Value Reference Range Interpretation Comments Anion Gap (test code = 35886-2) 14.9 8-16 [facility] SouthBlood Urea Hjulxcnx7060-96-71 20:34:00* Test Item Value Reference Range Interpretation Comments Blood Urea Nitrogen (test code = 3094-0) 6 7-26 L [facility] SouthCreatinine2019-02-03 20:34:00* Test Item Value Reference Range Interpretation Comments Creatinine (test code = 2160-0) 0.75 0.57-1.11 [facility] SouthBUN/Creatinine Zzgby4352-50-36 20:34:00* Test Item Value Reference Range Interpretation Comments BUN/Creatinine Ratio (test code = 3097-3) 8 6-25 [facility] SouthEstimat Glomerular Filtration Rate 2018-03-11 20:34:00* Test Item Value Reference Range Interpretation Comments Estimat Glomerular Filtration Rate (test code = 648150680) > 60 >60 Ranges were taken from the National Kidney Disease Education Program and the [facility] Foundation literature.Reference ranges:60 or greater: Uzhkkl74-87 ( for 3 consecutive months): Chronic kidney disease 15 or less: Kidney failureCHRISTUS [facility] – SouthGlucose Theqz8761-76-68 20:34:00* Test Item Value Reference Range Interpretation Comments Glucose Level (test code = DWD1236) 98 74-118 [facility] SouthCalcium Locuw1513-06-49 20:34:00* Test Item Value Reference Range Interpretation Comments Calcium Level (test code = 23309-6) 6.7 8.4-10.2 LL Results repeated and called to GRIFFIN STOVALL RN at 2032 on 03/11/18 by Liza angeles. Read back and verified.[facility] SouthTotal Gvisktfyt7908-64-29 20:34:00* Test Item Value Reference Range Interpretation Comments Total Bilirubin (test code = 1975-2) 0.6 0.2-1.2 [facility] SouthAspartate Amino Transf (AST/SGOT) 2018-03-11 20:34:00* Test Item Value Reference Range Interpretation Comments Aspartate Amino Transf (AST/SGOT) (test code = Aspartate Amino Transf (AST/SGOT)) 41 5-34 H [facility] SouthAlanine Aminotransferase (ALT/SGPT) 2018-03-11 20:34:00* Test Item Value Reference Range Interpretation Comments Alanine Aminotransferase (ALT/SGPT) (test code = 1742-6) 27 0-55 [facility] SouthTotal Cjpcryp6457-57-05 20:34:00* Test Item Value Reference Range Interpretation Comments Total Protein (test code = 2885-2) 5.9 6.5-8.1 L [facility] SouthAlbumin2019-02-03 20:34:00* Test Item Value Reference Range Interpretation Comments Albumin (test code = 1751-7) 2.9 3.5-5.0 L [facility] SouthGlobulin2019-02-03 20:34:00* Test Item Value Reference Range Interpretation Comments Globulin (test code = 76924-2) 3.0 2.3-3.5 [facility] SouthAlbumin/Globulin Ztpcq7224-97-56 20:34:00 * Test Item Value Reference Range Interpretation Comments Albumin/Globulin Ratio (test code = 1759-0) 1.0 0.8-2.0 [facility] SouthAlkaline Anuxyxynzqa9567-05-71 20:34:00* Test Item Value Reference Range Interpretation Comments Alkaline Phosphatase (test code = 6768-6) 73 40-150 [facility] SouthCreatine Jlvwkj4273-29-36 20:34:00* Test Item Value Reference Range Interpretation Comments Creatine Kinase (test code = 2157-6) 327 29-168 H [facility] SouthCHEST SINGLE (PORTABLE)2018-03-11 20:29:00 [facility] [address] [place] [address] Patient Name: DANIELLE HUNTER MR #: [id number] : 1975 Age/Sex: 42/F Req #: [id number] [facility] Physician: Ordered by: SERGE DRUMMOND MD Report #: [id number] Location: ER Room/Bed: Procedure: [id number] DX/CHEST SINGLE (PORTABLE) Exam Date: 03/11/18 Exam Time: 2014 REPORT STATUS: Signed CHEST SINGLE (PORTABLE), 03/11/2018 8:03 PM Technique: CHEST SINGLE (PORTABL E) Comparison: 03/03/2018 Clinical history: Chest pain Findings: Promi nent cardiac silhouette, accentuated by technique. No consolidation or edema. No effusion or pneumothorax. Impression: 1. Lines/Tubes: None 2. No acu te abnormality. Signed by: Dr Joshua Gallardo MD on 03/11/2018 8:33 PM Dictated By: JOSHUA GALLARDO MD 32 Transcribed By: MICHELLE on 03/11/182032 COPY TO: SERGE DRUMMOND MD Prothrombin Dnfl7897-03-00 20:21:00* Test Item Value Reference Range Interpretation Comments Prothrombin Time (test code = 5902-2) 13.8 11.9-14.5 [facility] SouthProthromb Time International Ratio 2018-03-11 20:21:00* Test Item Value Reference Range Interpretation Comments Prothromb Time International Ratio (test code = 6301-6) 0.97 Oral Anticoagulant Therapy INR Values:1. Low Intensity Therapy 1.5 - 2.02 . Moderate Intensity Therapy 2.0 - 3.03. High Intensity Therapy(1) 2.5 - 3. 54. High Intensity Therapy(2) 3.0 - 4.05. Panic Value INR > 5.0 [facility] SouthActivated Partial Thromboplast Time 2018-03-11 20:21:00* Test Item Value Reference Range Interpretation Comments Activated Partial Thromboplast Time (test code = 25586-1) 27.5 23.8-35.5 [facility] SouthWhite Blood Hbxoy8165-85-95 20:17:00* Test Item Value Reference Range Interpretation Comments White Blood Count (test code = 6690-2) 8.12 4.8-10.8 [facility] SouthRed Blood Xbvhf8805-65-90 20:17:00* Test Item Value Reference Range Interpretation Comments Red Blood Count (test code = 789-8) 3.61 3.6-5.1 [facility] SouthHemoglobin2019-02-03 20:17:00* Test Item Value Reference Range Interpretation Comments Hemoglobin (test code = 64112-6) 11.1 12.0-16.0 L [facility] SouthHematocrit2019-02-03 20:17:00* Test Item Value Reference Range Interpretation Comments Hematocrit (test code = 4544-3) 31.7 34.2-44.1 L [facility] SouthMean Corpuscular Mtbqtl5195-09-14 20:17:00* Test Item Value Reference Range Interpretation Comments Mean Corpuscular Volume (test code = 787-2) 87.8 81-99 [facility] SouthMean Corpuscular Egiywmdutj6934-43-22 20:17:00* Test Item Value Reference Range Interpretation Comments Mean Corpuscular Hemoglobin (test code = 785-6) 30.7 28-32 [facility] SouthMean Corpuscular Hemoglobin Concent 2018-03-11 20:17:00* Test Item Value Reference Range Interpretation Comments Mean Corpuscular Hemoglobin Concent (test code = 786-4) 35.0 31-35 [facility] SouthRed Cell Distribution Kfhnp2043-56-75 20:17:00* Test Item Value Reference Range Interpretation Comments Red Cell Distribution Width (test code = 48770-1) 13.6 11.7 -14.4 [facility] SouthPlatelet Bgmnd1786-39-56 20:17:00* Test Item Value Reference Range Interpretation Comments Platelet Count (test code = 777-3) 245 140-360 [facility] SouthNeutrophils (%) (Auto)2018-03-11 20:17:00 * Test Item Value Reference Range Interpretation Comments Neutrophils (%) (Auto) (test code = 60299-7) 61.9 38.7-80.0 [facility] SouthLymphocytes (%) (Auto)2018-03-11 20:17:00 * Test Item Value Reference Range Interpretation Comments Lymphocytes (%) (Auto) (test code = 736-9) 27.7 18.0-39.1 [facility] (%) (Auto)2018-03-11 20:17:00* Test Item Value Reference Range Interpretation Comments Monocytes (%) (Auto) (test code = 5905-5) 7.3 4.4-11.3 [facility] SouthEosinophils (%) (Auto)2018-03-11 20:17:00 * Test Item Value Reference Range Interpretation Comments Eosinophils (%) (Auto) (test code = 713-8) 2.5 0.0-6.0 [facility]Basophils (%) (Auto)2018-03-11 20:17:00* Test Item Value Reference Range Interpretation Comments Basophils (%) (Auto) (test code = 706-2) 0.2 0.0-1.0 [facility] SouthIM GRANULOCYTES %2018-03-11 20:17:00* Test Item Value Reference Range Interpretation Comments IM GRANULOCYTES % (test code = IM GRANULOCYTES %) 0.4 0.0- 1.0 [facility] SouthNeutrophils # (Auto)2018-03-11 20:17:00* Test Item Value Reference Range Interpretation Comments Neutrophils # (Auto) (test code = 751-8) 5.0 2.1-6.9 [facility] SouthLymphocytes # (Auto)2018-03-11 20:17:00* Test Item Value Reference Range Interpretation Comments Lymphocytes # (Auto) (test code = 25652-8) 2.3 1.0-3.2 [facility]Monocytes # (Auto)2018-03-11 20:17:00* Test Item Value Reference Range Interpretation Comments Monocytes # (Auto) (test code = 742-7) 0.6 0.2-0.8 [facility]Eosinophils # (Auto)2018-03-11 20:17:00* Test Item Value Reference Range Interpretation Comments Eosinophils # (Auto) (test code = 711-2) 0.2 0.0-0.4 [facility]ophils # (Auto)2018-03-11 20:17:00* Test Item Value Reference Range Interpretation Comments Basophils # (Auto) (test code = 704-7) 0.0 0.0-0.1 [facility] SouthAbsolute Immature Granulocyte (auto 2018-03-11 20:17:00* Test Item Value Reference Range Interpretation Comments Absolute Immature Granulocyte (auto (kristina t code = Absolute Immature Granulocyte (auto) 0.03 0-0.1 [facility]25-Hydroxy Vitamin D Uijad8036-87-55 05:09:00* Test Item Value Reference Range Interpretation Comments 25-Hydroxy Vitamin D Total (test code = 55942-0) 15 . L Reference Range:All Ages: Target levels 30 - 100[facility]25-Hydroxy Vitamin E17107-33-20 05:09:00* Test Item Value Reference Range Interpretation Comments 25-Hydroxy Vitamin D3 (test code = 37842-9) 11 . Performed at: [employer] [facility] [id number] [place], [place] [id number] Director: Pravin Dunbar MD, Phone: [phone] [facility]ohn [facility] – South25-Hydroxy Vitamin [id number] 05:09:00* Test Item Value Reference Range Interpretation Comments 25-Hydroxy Vitamin D2 (test code = 1989-3) 4.2 . [facility] SouthParathyroid Dvtqccw0944-90-03 09:13:00* Test Item Value Reference Range Interpretation Comments Parathyroid Hormone (test code = 2731-8) 82 15-65 H [facility] SouthCalcium (Send out)2018-03-06 09:13:00* Test Item Value Reference Range Interpretation Comments Calcium (Send out) (test code = 15096-0) 8.1 8.7-10.2 L [facility] SouthParathyroid Hormone Interpretation 2018-03-06 09:13:00* Test Item Value Reference Range Interpretation Comments Parathyroid Hormone Interpretation (test code = Parathyroid Hormone Interpretation) Comment . Interpretation Intact PTH Calcium (pg/mL) (mg/dL)Normal 15 - 65 8.6 - 10.2Pr imary Hyperparathyroidism >65 >10.2Secondary Hyperparathyroidism >65 <10.2Non-Parathyroid Hypercalcemia <65 >10.2Hypoparathyroidism <15 < 8.6Non- Parathyroid Hypocalcemia 15 - 65 < 8.6Performed at: - [facility] [address] [id number] Director: Nathan Gusman MD, Phone: [phone] at: - [facility] [address] [id number] Director: Jennifer Noonan MD, Phone: [phone] [facility] SouthHemoglobin A1c Hzpefpk9489-19-96 08:20:00* Test Item Value Reference Range Interpretation Comments Hemoglobin A1c Percent (test code = Hemoglobin A1c Percent) 6.0 4.0-7.0 [facility] SouthTriglycerides Tzzxq6194-69-72 08:20:00* Test Item Value Reference Range Interpretation Comments Triglycerides Level (test code = 2571-8) 117 0-149 [facility] SouthCholesterol Zmjlr7105-52-89 08:20:00* Test Item Value Reference Range Interpretation Comments Cholesterol Level (test code = 2093-3) 156 0-199 Less than 200 mg/dL Low Gazk132 - 239 mg/dL Borderline Raas289 m g/dl and greater High Risk [facility] SouthLDL Duzijpzruwu8736-43-28 08:20:00* Test Item Value Reference Range Interpretation Comments LDL Cholesterol (test code = 2089-1) 71 60-130 [facility] SouthHDL Avymporcusg1368-03-49 08:20:00* Test Item Value Reference Range Interpretation Comments HDL Cholesterol (test code = 2085-9) 62 40-60 H [facility] SouthCholesterol/HDL Uyndy0304-68-96 08:20:00 * Test Item Value Reference Range Interpretation Comments Cholesterol/HDL Ratio (test code = 9830-1) 2.5 3.0-3.6 L [facility] SouthHemoglobin A1c Rroeusk8737-37-06 08:20:00 * Test Item Value Reference Range Interpretation Comments Hemoglobin A1c Percent (test code = Hemoglobin A1c Percent) 6.0 4.0-7.0 [facility] SouthTriglycerides Uhsle0662-38-74 08:20:00* Test Item Value Reference Range Interpretation Comments Triglycerides Level (test code = 2571-8) 117 0-149 [facility] SouthCholesterol Ubmfr9947-23-19 08:20:00* Test Item Value Reference Range Interpretation Comments Cholesterol Level (test code = 2093-3) 156 0-199 Less than 200 mg/dL Low Pgcz039 - 239 mg/dL Borderline Kwoo295 m g/dl and greater High Risk [facility] SouthLDL Dojywkvrztc2450-61-43 08:20:00* Test Item Value Reference Range Interpretation Comments LDL Cholesterol (test code = 2089-1) 71 60-130 [facility] Digbctkfjoj2113-61-56 08:20:00* Test Item Value Reference Range Interpretation Comments HDL Cholesterol (test code = 2085-9) 62 40-60 H [facility] SouthCholesterol/HDL Hixpk8546-56-41 08:20:00 * Test Item Value Reference Range Interpretation Comments Cholesterol/HDL Ratio (test code = 9830-1) 2.5 3.0-3.6 L [facility] Atlantaodium Rusdx8441-07-20 15:41:00* Test Item Value Reference Range Interpretation Comments Sodium Level (test code = 2951-2) 139 136-145 [facility] SouthPotassium Lpcsw2206-78-29 15:41:00* Test Item Value Reference Range Interpretation Comments Potassium Level (test code = 2823-3) 3.7 3.5-5.1 [facility] SouthChloride Kxnaf5113-84-41 15:41:00* Test Item Value Reference Range Interpretation Comments Chloride Level (test code = 2075-0) 101 98-107 [facility] SouthCarbon Dioxide Jflmi4774-97-71 15:41:00* Test Item Value Reference Range Interpretation Comments Carbon Dioxide Level (test code = 2028-9) 29 22-29 [facility] SouthAnion Ssj1013-36-65 15:41:00* Test Item Value Reference Range Interpretation Comments Anion Gap (test code = 26500-9) 12.7 8-16 [facility] SouthBlood Urea Yqzcvknd3481-99-86 15:41:00* Test Item Value Reference Range Interpretation Comments Blood Urea Nitrogen (test code = 3094-0) < 5 7-26 L [facility] SouthCreatinine2019-01-27 15:41:00* Test Item Value Reference Range Interpretation Comments Creatinine (test code = 2160-0) 0.71 0.57-1.11 [facility] SouthBUN/Creatinine Qojwj9758-96-78 15:41:00* Test Item Value Reference Range Interpretation Comments BUN/Creatinine Ratio (test code = 3097-3) 7 6-25 [facility] SouthEstimat Glomerular Filtration Rate 2018-03-04 15:41:00* Test Item Value Reference Range Interpretation Comments Estimat Glomerular Filtration Rate (test code = 857194059) > 60 >60 Ranges were taken from the National Kidney Disease Education Program and the [facility] literature.Reference ranges:60 or greater: Nehuee13-66 ( for 3 consecutive months): Chronic kidney disease 15 or less: Kidney failureCHRISTUS Spohn Hospital Corpus Christi – SouthGlucose Qmoom2882-63-73 15:41:00* Test Item Value Reference Range Interpretation Comments Glucose Level (test code = XNE2548) 130 74-118 H [facility] SouthCalcium Fbuue1364-64-04 15:41:00* Test Item Value Reference Range Interpretation Comments Calcium Level (test code = 85192-8) 8.2 8.4-10.2 L [facility] SouthMagnesium Aifut8476-17-87 15:41:00* Test Item Value Reference Range Interpretation Comments Magnesium Level (test code = 36260-7) 1.5 1.3-2.1 [facility] SouthTotal Ifqjutrzo4081-03-68 15:41:00* Test Item Value Reference Range Interpretation Comments Total Bilirubin (test code = 1975-2) 0.3 0.2-1.2 [facility] SouthAspartate Amino Transf (AST/SGOT) 2018-03-04 15:41:00* Test Item Value Reference Range Interpretation Comments Aspartate Amino Transf (AST/SGOT) (test code = Aspartate Amino Transf (AST/SGOT)) 21 5-34 [facility] SouthAlanine Aminotransferase (ALT/SGPT) 2018-03-04 15:41:00* Test Item Value Reference Range Interpretation Comments Alanine Aminotransferase (ALT/SGPT) (test code = 1742-6) 10 0-55 [facility] SouthTotal Scjivcw7274-08-45 15:41:00* Test Item Value Reference Range Interpretation Comments Total Protein (test code = 2885-2) 5.4 6.5-8.1 L [facility] SouthAlbumin2019-01-27 15:41:00* Test Item Value Reference Range Interpretation Comments Albumin (test code = 1751-7) 2.6 3.5-5.0 L [facility] SouthGlobulin2019-01-27 15:41:00* Test Item Value Reference Range Interpretation Comments Globulin (test code = 19122-2) 2.8 2.3-3.5 [facility] SouthAlbumin/Globulin Ubtej1857-49-53 15:41:00 * Test Item Value Reference Range Interpretation Comments Albumin/Globulin Ratio (test code = 1759-0) 0.9 0.8-2.0 [facility] SouthAlkaline Iglrwdxxjsa9899-06-82 15:41:00* Test Item Value Reference Range Interpretation Comments Alkaline Phosphatase (test code = 6768-6) 50 40-150 [facility] SouthMagnesium Thswc4812-67-76 15:41:00* Test Item Value Reference Range Interpretation Comments Magnesium Level (test code = 37394-6) 1.5 1.3-2.1 [facility] SouthWhite Blood Oonjg9988-45-03 05:14:00* Test Item Value Reference Range Interpretation Comments White Blood Count (test code = 6690-2) 3.92 4.8-10.8 L [facility] SouthRed Blood Mabhl4004-57-96 05:14:00* Test Item Value Reference Range Interpretation Comments Red Blood Count (test code = 789-8) 3.59 3.6-5.1 L [facility] SouthHemoglobin2019-01-27 05:14:00* Test Item Value Reference Range Interpretation Comments Hemoglobin (test code = 15866-8) 10.8 12.0-16.0 L [facility] SouthHematocrit2019-01-27 05:14:00* Test Item Value Reference Range Interpretation Comments Hematocrit (test code = 4544-3) 32.2 34.2-44.1 L [facility] SouthMean Corpuscular Ewnfvo8056-54-02 05:14:00* Test Item Value Reference Range Interpretation Comments Mean Corpuscular Volume (test code = 787-2) 89.7 81-99 [facility] SouthMean Corpuscular Qcytsvhtiv9232-69-12 05:14:00* Test Item Value Reference Range Interpretation Comments Mean Corpuscular Hemoglobin (test code = 785-6) 30.1 28-32 [facility] SouthMean Corpuscular Hemoglobin Concent 2018-03-04 05:14:00* Test Item Value Reference Range Interpretation Comments Mean Corpuscular Hemoglobin Concent (test code = 786-4) 33.5 31-35 [facility] SouthRed Cell Distribution Wseyp9820-30-23 05:14:00* Test Item Value Reference Range Interpretation Comments Red Cell Distribution Width (test code = 16079-6) 13.6 11.7 -14.4 [facility] SouthPlatelet Cipnc0946-41-54 05:14:00* Test Item Value Reference Range Interpretation Comments Platelet Count (test code = 777-3) 248 140-360 [facility] SouthNeutrophils (%) (Auto)2018-03-04 05:14:00 * Test Item Value Reference Range Interpretation Comments Neutrophils (%) (Auto) (test code = 68507-3) 61.7 38.7-80.0 [facility] SouthLymphocytes (%) (Auto)2018-03-04 05:14:00 * Test Item Value Reference Range Interpretation Comments Lymphocytes (%) (Auto) (test code = 736-9) 25.8 18.0-39.1 [facility] SouthMonocytes (%) (Auto)2018-03-04 05:14:00* Test Item Value Reference Range Interpretation Comments Monocytes (%) (Auto) (test code = 5905-5) 8.9 4.4-11.3 [facility] SouthEosinophils (%) (Auto)2018-03-04 05:14:00 * Test Item Value Reference Range Interpretation Comments Eosinophils (%) (Auto) (test code = 713-8) 2.6 0.0-6.0 [facility] SouthBasophils (%) (Auto)2018-03-04 05:14:00* Test Item Value Reference Range Interpretation Comments Basophils (%) (Auto) (test code = 706-2) 0.5 0.0-1.0 [facility] SouthIM GRANULOCYTES %2018-03-04 05:14:00* Test Item Value Reference Range Interpretation Comments IM GRANULOCYTES % (test code = IM GRANULOCYTES %) 0.5 0.0- 1.0 [facility] SouthNeutrophils # (Auto)2018-03-04 05:14:00* Test Item Value Reference Range Interpretation Comments Neutrophils # (Auto) (test code = 751-8) 2.4 2.1-6.9 [facility] SouthLymphocytes # (Auto)2018-03-04 05:14:00* Test Item Value Reference Range Interpretation Comments Lymphocytes # (Auto) (test code = 36945-8) 1.0 1.0-3.2 [facility] SouthMonocytes # (Auto)2018-03-04 05:14:00* Test Item Value Reference Range Interpretation Comments Monocytes # (Auto) (test code = 742-7) 0.4 0.2-0.8 [facility] SouthEosinophils # (Auto)2018-03-04 05:14:00* Test Item Value Reference Range Interpretation Comments Eosinophils # (Auto) (test code = 711-2) 0.1 0.0-0.4 [facility] SouthBasophils # (Auto)2018-03-04 05:14:00* Test Item Value Reference Range Interpretation Comments Basophils # (Auto) (test code = 704-7) 0.0 0.0-0.1 [facility] SouthAbsolute Immature Granulocyte (auto 2018-03-04 05:14:00* Test Item Value Reference Range Interpretation Comments Absolute Immature Granulocyte (auto (kristina t code = Absolute Immature Granulocyte (auto) 0.02 0-0.1 [facility] SouthPhosphorus Zkayr8240-17-22 18:39:00* Test Item Value Reference Range Interpretation Comments Phosphorus Level (test code = GDM4114) 2.8 2.3-4.7 [facility] SouthPhosphorus Anxpk5480-94-30 18:39:00* Test Item Value Reference Range Interpretation Comments Phosphorus Level (test code = GCM2409) 2.8 2.3-4.7 [facility] SouthEthyl Alcohol Eznph6729-25-24 18:38:00* Test Item Value Reference Range Interpretation Comments Ethyl Alcohol Level (test code = 5643-2) 88.9 0.0-10.0 H [facility] SouthIonized Rcjyvec6930-11-25 18:33:00* Test Item Value Reference Range Interpretation Comments Ionized Calcium (test code = 45269-8) 0.9 1.09-1.30 L [facility] SouthArterial Blood sZ3782-98-78 18:21:00* Test Item Value Reference Range Interpretation Comments Arterial Blood pH (test code = 2744-1) 7.50 7.31-7.41 H [facility] SouthArterial Blood Partial Pressure CO2 2018-03-03 18:21:00* Test Item Value Reference Range Interpretation Comments Arterial Blood Partial Pressure CO2 (test code = 2018-8) 40 41-51 L [facility] SouthArterial Blood Partial Pressure O2 2018-03-03 18:21:00* Test Item Value Reference Range Interpretation Comments Arterial Blood Partial Pressure O2 (test code = 2018-8) 97 80-105 [facility] SouthArtersum[facility] Blood UEQ22215-32-87 18:21:00* Test Item Value Reference Range Interpretation Comments Arterial Blood HCO3 (test code = 1960-4) 32 23-28 H [facility] SouthArterial Blood Base Dawmnr1533-02-95 18:21:00* Test Item Value Reference Range Interpretation Comments Arterial Blood Base Excess (test code = 1925-7) 8.0 -2-3 H [facility] SouthArterial Blood Oxygen Saturation 2018-03-03 18:21:00* Test Item Value Reference Range Interpretation Comments Arterial Blood Oxygen Saturation (test code = 2708-6) 98.0 95-98 [facility] SouthFiO22019-01-26 18:21:00* Test Item Value Reference Range Interpretation Comments FiO2 (test code = FiO2) 28 Pt [facility]L [facility] gC3704-30-47 18:21:00* Test Item Value Reference Range Interpretation Comments Arterial Blood pH (test code = 2744-1) 7.50 7.31-7.41 H [facility] SouthArterial Blood Partial Pressure CO2 2018-03-03 18:21:00* Test Item Value Reference Range Interpretation Comments Arterial Blood Partial Pressure CO2 (test code = 2018-8) 40 41-51 L [facility] SouthArterial Blood Partial Pressure O2 2018-03-03 18:21:00* Test Item Value Reference Range Interpretation Comments Arterial Blood Partial Pressure O2 (test code = 2018-8) 97 80-105 [facility] SouthArterial Blood [id number] 18:21:00* Test Item Value Reference Range Interpretation Comments Arterial Blood HCO3 (test code = 1960-4) 32 23-28 H [facility] SouthArterial Blood Base Ftyuvd1168-07-04 18:21:00* Test Item Value Reference Range Interpretation Comments Arterial Blood Base Excess (test code = 1925-7) 8.0 -2-3 H [facility] SouthArterial Blood Oxygen Saturation 2018-03-03 18:21:00* Test Item Value Reference Range Interpretation Comments Arterial Blood Oxygen Saturation (test code = 2708-6) 98.0 95-98 [facility] SouthFiO22019-01-26 18:21:00* Test Item Value Reference Range Interpretation Comments FiO2 (test code = FiO2) 28 Pt on 2L [facility] HospitalThyroid Stimulating Hormone (TSH)2018-03-03 18:05:00* Test Item Value Reference Range Interpretation Comments Thyroid Stimulating Hormone (TSH) (test code = 98084-8) 3.275 0.350-4.940 [facility] SouthThyroid Stimulating Hormone (TSH) 2018-03-03 18:05:00* Test Item Value Reference Range Interpretation Comments Thyroid Stimulating Hormone (TSH) (test code = 86189-7) 3.275 0.350-4.940 [facility] SouthUrine Opiates Qzykvn8335-79-60 17:51:00* Test Item Value Reference Range Interpretation Comments Urine Opiates Screen (test code = 53051-0) NEGATIVE NEGATIVE ALL TESTS PERFORMED MANUALLY ON [employer] TOX/SEE TESTCHRISTUS [facility]us Christi – SouthUrine Barbiturates Fwbqte1380-78-69 17:51:00* Test Item Value Reference Range Interpretation Comments Urine Barbiturates Screen (test code = 157267086) NEGATIVE NEGA TIVE [facility] SouthUrine Phencyclidine Qhbgoc5411-72-25 17:51:00* Test Item Value Reference Range Interpretation Comments Urine Phencyclidine Screen (test code = 18034-3) NEGATIVE NEGAT RADHA [facility] SouthUrine Amphetamines Gvikke4449-18-67 17:51:00* Test Item Value Reference Range Interpretation Comments Urine Amphetamines Screen (test code = 24538-5) NEGATIVE NEGATI VE [facility] SouthUrine Methamphetamines Acbsci0755-40-13 17:51:00* Test Item Value Reference Range Interpretation Comments Urine Methamphetamines Screen (test code = Urine Metha mphetamines Screen) NEGATIVE NEGATIVE [facility] SouthUrine Benzodiazepines Zauzpg7283-10-10 17:51:00* Test Item Value Reference Range Interpretation Comments Urine Benzodiazepines Screen (test code = 60147-7) NEGATIVE NEG ATIVE [facility] SouthUrine Cocaine Bhcvoi4241-76-17 17:51:00* Test Item Value Reference Range Interpretation Comments Urine Cocaine Screen (test code = 3398-5) NEGATIVE NEGATIVE [facility] SouthUrine Cannabinoids Lfyeuu0027-91-98 17:51:00* Test Item Value Reference Range Interpretation Comments Urine Cannabinoids Screen (test code = 31783-4) NEGATIVE NEGATI VE THESE RESULTS ARE FOR MEDICAL TREATMENT ONLYTHIS REPORT CONTAINS UNCONFIR MED SCREENING RESULTS*POSITIVE RESULTS WILL BE CONFIRMED BY REFERENCE LAB UPON R EQUEST CUT-OFFDRUG CLASS CONCENTRATION ng/mLAmphetamines 1000Methamphetamines 1000Cocaine 300Opiate 300Phencyc lidine 25Cannabinoid 50Barbiturates 300Benzodiazepine 300Methadone 300[facility] CenterUrine Methadone Dtbpcm8035-91-56 17:51:00* Test Item Value Reference Range Interpretation Comments Urine Methadone Screen (test code = 39330-7) NEGATIVE NEGATIVE THESE RESULTS ARE FOR MEDICAL TREATMENT ONLYTHIS REPORT CONTAINS UNCONFIR MED SCREENING RESULTS*POSITIVE RESULTS WILL BE CONFIRMED BY REFERENCE LAB UPON R EQUEST CUT-OFFDRUG CLASS CONCENTRATION ng/mLAmphetamines 1000Methamphetamines 1000Cocaine Metabolite 300Opiate 300Phencyc lidine 25Cannabinoid 50Barbiturates 300Benzodiazepine 300Methadone 300[facility] CenterCreatine Kinase RD1610-12-65 17:33:00* Test Item Value Reference Range Interpretation Comments Creatine Kinase MB (test code = 79692-3) 0.90 0-5.0 [facility] SouthTroponin [id number] 17:33:00* Test Item Value Reference Range Interpretation Comments Troponin I (test code = KRJ3349) 0.001 0-0.300 [facility] SouthCreatine Dxbyvw9193-62-93 17:25:00* Test Item Value Reference Range Interpretation Comments Creatine Kinase (test code = 2157-6) 240 29-168 H [facility] SouthAmylase Bgtko6838-50-60 17:25:00* Test Item Value Reference Range Interpretation Comments Amylase Level (test code = 1798-8) 71 25-125 [facility] SouthLipase2019-01-26 17:25:00* Test Item Value Reference Range Interpretation Comments Lipase (test code = 3040-3) 30 8-78 [facility] SouthAmylase Ygfwb1779-72-64 17:25:00* Test Item Value Reference Range Interpretation Comments Amylase Level (test code = 1798-8) 71 25-125 [facility] SouthLipase2019-01-26 17:25:00* Test Item Value Reference Range Interpretation Comments Lipase (test code = 3040-3) 30 78 [facility] SouthUrine WUB2708-54-24 17:17:00* Test Item Value Reference Range Interpretation Comments Urine WBC (test code = 5821-4) 0-5 0-5 [facility] SouthUrine ETR5621-68-19 17:17:00* Test Item Value Reference Range Interpretation Comments Urine RBC (test code = 58466-2) 0-5 0-5 [facility] SouthUrine Ofnrgaos6473-80-96 17:17:00* Test Item Value Reference Range Interpretation Comments Urine Bacteria (test code = 87581-2) MANY NONE H [facility] SouthUrine Epithelial Wwbse7353-21-61 17:17:00 * Test Item Value Reference Range Interpretation Comments Urine Epithelial Cells (test code = 60847-9) MANY NONE [facility] SouthUrine Uvqwy5317-51-09 17:12:00* Test Item Value Reference Range Interpretation Comments Urine Color (test code = 5778-6) STRAW YELLOW [facility] [id number] 17:12:00* Test Item Value Reference Range Interpretation Comments Urine Clarity (test code = 26504-9) HAZY CLEAR [facility] Specific [id number] 17:12:00 * Test Item Value Reference Range Interpretation Comments Urine Specific [place] (test code = 5811-5) 1.000 1.010-1.02 5 L [facility] [id number] 17:12:00* Test Item Value Reference Range Interpretation Comments Urine pH (test code = 12777-6) 7 5-7 [facility] Leukocyte [id number] 17:12:00* Test Item Value Reference Range Interpretation Comments Urine Leukocyte Esterase (test code = 5799-2) 1+ NEGATIVE H [facility] [id number] 17:12:00* Test Item Value Reference Range Interpretation Comments Urine Nitrite (test code = 20940-9) NEGATIVE NEGATIVE [facility] Xpyzyck9291-98-55 17:12:00* Test Item Value Reference Range Interpretation Comments Urine Protein (test code = 5804-0) NEGATIVE NEGATIVE [facility] Glucose (UA)2018-03-03 17:12:00* Test Item Value Reference Range Interpretation Comments Urine Glucose (UA) (test code = 2349-9) NEGATIVE NEGATIVE [facility] Enkkwbs8277-29-65 17:12:00* Test Item Value Reference Range Interpretation Comments Urine Ketones (test code = 71608-1) NEGATIVE NEGATIVE [facility] Aunfedezecxh6576-28-17 17:12:00* Test Item Value Reference Range Interpretation Comments Urine Urobilinogen (test code = 54873-9) 0.2 0.2-1 [facility] Toedhdqwd3470-41-10 17:12:00* Test Item Value Reference Range Interpretation Comments Urine Bilirubin (test code = 1978-6) NEGATIVE NEGATIVE [facility] Dqufy5807-72-54 17:12:00* Test Item Value Reference Range Interpretation Comments Urine Blood (test code = 07784-0) 4+ NEGATIVE H [facility] Qsyf6415-88-70 17:12:00* Test Item Value Reference Range Interpretation Comments Urine Test (test code = 2106-3) NEGATIVE NEGATIVE [facility] Wwhm2527-53-20 17:12:00* Test Item Value Reference Range Interpretation Comments Urine Test (test code = 2106-3) NEGATIVE NEGATIVE [facility]2018[facility]03-03 16:56:00 [facility] [address] [address] Patient Name: DANIELLE HUNTER MR #: [id number] : 1975 Age/Sex: 42/F Req #: [id number] Adm Physician: Ordered by: DWAINE MIRANDA NP Report #: [id number] Location: ER Room/Bed: Procedure: [id number] DX/CHEST SINGLE (PORTABLE) Exam Date: 03/03/18 Exam Time: 1645 REPORT STATUS: Signed EXAM: XR CHEST 1 VIEW DATE: 03/03/2018 4:37 PM INDICATION: Pain COMPARISON: None FINDINGS: Lines and Tubes: None Heart and Media stinum: No acute cardiomediastinal findings. Lungs and Pleura: No significa nt pleural effusion, pneumothorax, or focal consolidation. Bones and Soft Tissues: No acute findings. IMPRESSION: 1. No acute cardiopulmonary fi ndings. Signed by: Dr. Brigid Vail MD on 03/03/2018 4:56 PM Dictate d By: BRIGID VAIL MD 55 Transcribed By: MICHELLE on 03/03/181655 COPY TO: DWAINE MIRANDA NP
--- OUTSIDE RECORDS SUMMARY | 2019-12-12 18:59 | XMS REPORT | Clinical Summary ---
Author Author [facility] Organization [facility] Address Unknown Phone Unavailable Care Team Providers Care Fitness And Wellness Coordinator Name Role Phone PCP Unavailable Allergies No Known Allergies Medications Not on file Active Problems Problem Noted Date Pain in right ankle 07/11/2016 Trimalleolar fracture 06/23/2016 Social History Date Tobacco Use Types Packs/Day Years Used Never Assessed Sex Assigned at Date Recorded Not on file Industry Job Start Date Occupation Not on file Not on file Not on file Travel End Travel History Travel Start No recent travel history available. Last Filed Vital Signs Not on file Plan of Treatment Health Maintenance Due Date Last Done Comments HPV Cervical Cancer Scrn 12/01/2005 Pap Cervical Cancer Scrn 12/01/2005 Breast Cancer Scrn 2015 (Yearly) IMM Influenza Seasonal 11/07/2019 Oct to April (>/= 19 yrs) Results Not on fileafter 12/09/2018 Insurance Type Payer Benefit Subscriber ID Effective Phone Address Plan / Dates Group [facility] SELF-PAY SELF-PAY xxxxxxx 2016- [phone] [id number] [place] [address] Guarantor Name Account Relation to Date of Phone Nimesh sue Address Type Patient DANIELLE HUNTER Personal/F Head of 1975 [address] (Home) [place], [place] [address] (Self)
== END 2019-12-10 07:00 | disposition home or self-care (01) ==
LOC: ER 02:00
DX: F10.129 Alcohol abuse with intoxication, unspecified (principal); R11.2 Nausea with vomiting, unspecified; I10 Essential (primary) hypertension; M32.9 Systemic lupus erythematosus, unspecified; M79.7 Fibromyalgia; F17.210 Nicotine dependence, cigarettes, uncomplicated
CPT/HCPCS: 36415; 71045; 71260; 80053; 80307; 80320; 81025; 82550; 82553; 83690; 83880; 84484; 85025; 85379; 93005; 99284; J7030; Q9967

== ENCOUNTER 2021-06-02 18:16 | Emergency (ER) | payer OTHER ==
[~2021-06-02] VITALS: Ht 157.5 cm; Wt 83.9 kg
[2021-06-02] MEDS ORDERED: ONDANSETRON HCL INJ 2MG/ML 2ML 2 MG/ML VIAL IV STA (18:29)
[2021-06-02] MEDS ORDERED: SODIUM CHLORIDE 0.9% 1000ML 1,000 ML IV STA (18:29)
[2021-06-02 18:43] LABS: BASOPHILS % 0.4 % (0.0-1.0); EOSINOPHILS # (AUTO) 0.2 (0.0-0.4); HEMATOCRIT 36.7 % (34.2-44.1); HEMOGLOBIN 11.7 g/dL (12.0-16.0); LYMPHOCYTES # (AUTO) 1.3 (1.0-3.2); LYMPHOCYTES % 16.1 % (18.0-39.1); MEAN CORPUSCULAR HEMOGLOBIN 26.8 pg (28-32); MEAN CORPUSCULAR HGB CONC 31.9 g/dL (31-35); MONOCYTES # (AUTO) 0.6 (0.2-0.8); MONOCYTES % 7.1 % (4.4-11.3); NEUTROPHILS # (AUTO) 5.7 (2.1-6.9); NEUTROPHILS % 73.1 % (38.7-80.0); PLATELET COUNT 318 x10e3/uL (140-360); RED BLOOD COUNT 4.37 x10e6/uL (3.6-5.1); RED CELL DISTRIBUTION WIDTH 16.3 % (11.7-14.4)
[2021-06-02 18:48] LABS: AMPHETAMINES SCREEN,URINE NEGATIVE (NEGATIVE); BENZODIAZEPINES SCREEN,URINE NEGATIVE (NEGATIVE); CLARITY,URINE CLEAR (CLEAR); COLOR,URINE YELLOW (YELLOW); KETONES,URINE 2+ (NEGATIVE); LEUKOCYTE ESTERASE ,URINE NEGATIVE (NEGATIVE); NITRITE,URINE NEGATIVE (NEGATIVE); PHENCYCLIDINE SCREEN,URINE NEGATIVE (NEGATIVE); PROTEIN,URINE DIPSTICK 2+ (NEGATIVE)
[2021-06-02 18:50] LABS: BACTERIA,URINE RARE /HPF; EPITHELIAL CELLS,URINE FEW /LPF; MUCUS,URINE FEW (RARE)
[2021-06-02] MEDS ORDERED: DIATRIZOATE MEGL/DIATRIZOA SOD 30 ML BTL PO ONE (18:52)
[2021-06-02 18:59] LABS: ALBUMIN 3.5 g/dL (3.5-5.0); ALBUMIN/GLOBULIN RATIO 0.9 (0.8-2.0); ANION GAP 14.1 mmol/L (8-16); CALCIUM 8.3 mg/dL (8.4-10.2); CREATININE, SERUM 0.8 mg/dL (0.57-1.11); POTASSIUM 3.1 mmol/L (3.5-5.1)
[2021-06-02] MEDS ORDERED: IOPAMIDOL 370 MG/ML 100 ML INFUS..BTL INJ ONE (19:22)
[2021-06-02 19:35] LABS: LIPASE 55 U/L (8-78)
[2021-06-02] MEDS ORDERED: ACETAMINOPHEN-1 EAC4 PO (22:19)
[2021-06-02 22:35] VITALS: BP 169/114
== END 2021-06-02 22:35 | disposition home or self-care (01) ==
LOC: ER 18:41
DX: R10.10 Upper abdominal pain, unspecified (principal); M32.9 Systemic lupus erythematosus, unspecified; I10 Essential (primary) hypertension; M79.7 Fibromyalgia; K76.0 Fatty (change of) liver, not elsewhere classified; Z90.49 Acquired absence of other specified parts of digestive tract
CPT/HCPCS: 36415; 74177; 80053; 80307; 80320; 81001; 81025; 83690; 85025; 93005; 99284; J2405; J7030; Q9967

== ENCOUNTER 2021-06-23 09:51 | Inpatient (IN) | payer OTHER ==
[~2021-06-23] VITALS: Ht 157.5 cm; Wt 91.9 kg
[~2021-06-23 09:51] MED LIST changes: +ACETAMINOPHEN-1 EAC4 PO
[2021-06-23] MEDS ORDERED: SODIUM CHLORIDE 0.9% 1000ML 1,000 ML IV STA (10:47)
[2021-06-23 11:14] LABS: BASOPHILS % 0.5 % (0.0-1.0); EOSINOPHILS # (AUTO) 0.1 (0.0-0.4); EOSINOPHILS % 0.8 % (0.0-6.0); HEMOGLOBIN 12.2 g/dL (12.0-16.0); LYMPHOCYTES % 16.1 % (18.0-39.1); MEAN CORPUSCULAR HEMOGLOBIN 27.2 pg (28-32); MEAN CORPUSCULAR HGB CONC 32.1 g/dL (31-35); MEAN CORPUSCULAR VOLUME 84.6 fL (81-99); MONOCYTES # (AUTO) 0.4 (0.2-0.8); MONOCYTES % 6.4 % (4.4-11.3); NEUTROPHILS # (AUTO) 4.8 (2.1-6.9); NEUTROPHILS % 75.7 % (38.7-80.0); PLATELET COUNT 450 x10e3/uL (140-360); RED BLOOD COUNT 4.49 x10e6/uL (3.6-5.1); RED CELL DISTRIBUTION WIDTH 17.6 % (11.7-14.4)
[2021-06-23 11:26] LABS: INR 0.95; PARTIAL THROMBOPLASTIN TIME 28.6 seconds (23.8-35.5); PROTHROMBIN TIME 13.5 seconds (11.9-14.5)
[2021-06-23 11:34] LABS: ALANINE AMINOTRANSFERASE 29 IU/L (0-55); ALBUMIN 3.5 g/dL (3.5-5.0); ALBUMIN/GLOBULIN RATIO 0.8 (0.8-2.0); ALKALINE PHOSPHATASE 191 IU/L (40-150); ANION GAP 14.8 mmol/L (8-16); BLOOD UREA NITROGEN < 5 mg/dL (7-26); CALCIUM 8.2 mg/dL (8.4-10.2); CARBON DIOXIDE 24 mmol/L (22-29); CHLORIDE 98 mmol/L (98-107); CREATINE KINASE 64 IU/L (29-168); CREATININE, SERUM 0.74 mg/dL (0.57-1.11); EST GLOMERULAR FILTRATION RATE 85 ML/MIN (60-); GLUCOSE 107 mg/dL (74-118); MAGNESIUM 1.4 MG/DL (1.3-2.1); POTASSIUM 3.8 mmol/L (3.5-5.1); SODIUM 133 mmol/L (136-145)
[2021-06-23 11:36] LABS: BUN/CREATININE RATIO 7 (6-25)
[2021-06-23] MEDS ORDERED: KETOROLAC TROMETHAMINE 30 MG/ML VIAL IV STA (12:58)
[2021-06-23] MEDS ORDERED: KCL 20MEQ/.9 SOD CHL 1,000 ML IV ONE ×2 (13:15→23:11)
[2021-06-23] MEDS ORDERED: ONDANSETRON HCL INJ 2MG/ML 2ML 2 MG/ML VIAL IV PRN (13:15)
[2021-06-23] MEDS: FAMOTIDINE 20 MG/2 ML VIAL IV SCH (13:37)
[2021-06-23] MEDS ORDERED: NEURONTIN300 MG PO (13:47)
[2021-06-23] MEDS ORDERED: ACCRUFER30 MG PO (13:47)
[2021-06-23] MEDS ORDERED: DICYCLOMINE HCL10 MG PO (13:47)
[2021-06-23] MEDS ORDERED: POTASSIUM CHLO10 ME1 PO (13:47)
[2021-06-23] MEDS ORDERED: METOPROLOL TARTRATE INJ 1 MG/ML VIAL IV PRN (15:30)
[2021-06-23] MEDS ORDERED: MAGNESIUM SULFATE 2GM/50ML 50 ML IV ONE (15:30)
[2021-06-23] MEDS ORDERED: ACETAMINOPHEN 325 MG TAB PO PRN (15:30)
[2021-06-23 15:54] LABS: THYROID STIMULATING HORMONE 2.353 uIU/mL (0.350-4.940)
[2021-06-23] MEDS: LEVETIRACETAM 500 MG TAB PO SCH (17:00)
[2021-06-23 18:14] LABS: CREATINE KINASE 57 IU/L (29-168)
[2021-06-23 20:28] VITALS: BP 153/96
[2021-06-23] MEDS: ACETAMIN/BUTALBITAL/CAFFEINE TAB PO PRN (21:27)
[2021-06-24] VITALS (10 sets, daily range): BP systolic 126–154; BP diastolic 86–103
[2021-06-24 01:39] LABS: CREATINE KINASE 53 IU/L (29-168)
[2021-06-24] MEDS: FAMOTIDINE 20 MG/2 ML VIAL IV SCH ×2 (02:42→13:15)
[2021-06-24] MEDS ORDERED: LEVETIRACETAM500 MG PO (03:22)
[2021-06-24 06:24] LABS: BASOPHILS % 0.5 % (0.0-1.0); EOSINOPHILS # (AUTO) 0.1 (0.0-0.4); EOSINOPHILS % 2.8 % (0.0-6.0); HEMATOCRIT 32.1 % (34.2-44.1); LYMPHOCYTES # (AUTO) 0.7 (1.0-3.2); LYMPHOCYTES % 17.9 % (18.0-39.1); MEAN CORPUSCULAR HEMOGLOBIN 26.6 pg (28-32); MEAN CORPUSCULAR HGB CONC 31.2 g/dL (31-35); MEAN CORPUSCULAR VOLUME 85.4 fL (81-99); MONOCYTES # (AUTO) 0.3 (0.2-0.8); MONOCYTES % 7.8 % (4.4-11.3); NEUTROPHILS # (AUTO) 2.8 (2.1-6.9); NEUTROPHILS % 70.5 % (38.7-80.0); PLATELET COUNT 315 x10e3/uL (140-360); RED BLOOD COUNT 3.76 x10e6/uL (3.6-5.1); RED CELL DISTRIBUTION WIDTH 17.7 % (11.7-14.4)
[2021-06-24 06:51] LABS: CREATINE KINASE 53 IU/L (29-168); MAGNESIUM 1.9 MG/DL (1.3-2.1); PHOSPHORUS 3.1 MG/DL (2.3-4.7)
[2021-06-24 06:54] LABS: ALANINE AMINOTRANSFERASE 21 IU/L (0-55); ALBUMIN 2.7 g/dL (3.5-5.0); ALBUMIN/GLOBULIN RATIO 0.8 (0.8-2.0); ALKALINE PHOSPHATASE 137 IU/L (40-150); ANION GAP 12.1 mmol/L (8-16); BLOOD UREA NITROGEN < 5 mg/dL (7-26); CALCIUM 7.4 mg/dL (8.4-10.2); CARBON DIOXIDE 23 mmol/L (22-29); CHLORIDE 108 mmol/L (98-107); CREATININE, SERUM 0.66 mg/dL (0.57-1.11); EST GLOMERULAR FILTRATION RATE 97 ML/MIN (60-); GLUCOSE 93 mg/dL (74-118); POTASSIUM 4.1 mmol/L (3.5-5.1); SODIUM 139 mmol/L (136-145)
[2021-06-24 06:58] LABS: BUN/CREATININE RATIO 8 (6-25)
[2021-06-24] MEDS: LEVETIRACETAM 500 MG TAB PO SCH ×2 (09:00→16:32)
[2021-06-24 09:28] LABS: FERRITIN 101.82 ng/mL (4.63-204.00)
[2021-06-24] MEDS: GABAPENTIN 300 MG CAP PO SCH ×2 (09:57→20:37)
[2021-06-24] MEDS: DICYCLOMINE HCL 10 MG CAP PO SCH ×2 (09:57→20:37)
[2021-06-24] MEDS ORDERED: D5.45%NS/KCL 20MEQ 1,000 ML IV ONE (10:00)
[2021-06-24] MEDS ORDERED: CYANOCOBALAMIN INJ 1,000 MCG/ML VIAL IM ONE (10:00)
[2021-06-24] MEDS: LABETALOL HCL 100 MG TAB PO SCH ×2 (11:30→20:38)
[2021-06-24] MEDS ORDERED: CHOLESTYRAMINE 4 GM PACKET PO ONE (16:20)
[2021-06-24] MEDS: ACETAMIN/BUTALBITAL/CAFFEINE TAB PO PRN (16:47)
[2021-06-24] MEDS ORDERED: KETOROLAC TROMETHAMINE 30 MG/ML VIAL IV ONE (18:58)
[2021-06-25] VITALS: BP 106/70
[2021-06-25] MEDS: FAMOTIDINE 20 MG/2 ML VIAL IV SCH (01:14)
[2021-06-25 04:00] VITALS: BP 108/77
[2021-06-25 05:32] LABS: BASOPHILS % 0.6 % (0.0-1.0); EOSINOPHILS # (AUTO) 0.1 (0.0-0.4); EOSINOPHILS % 3.9 % (0.0-6.0); HEMATOCRIT 28.6 % (34.2-44.1); HEMOGLOBIN 8.9 g/dL (12.0-16.0); LYMPHOCYTES # (AUTO) 0.9 (1.0-3.2); LYMPHOCYTES % 25.4 % (18.0-39.1); MEAN CORPUSCULAR HEMOGLOBIN 26.8 pg (28-32); MEAN CORPUSCULAR HGB CONC 31.1 g/dL (31-35); MEAN CORPUSCULAR VOLUME 86.1 fL (81-99); MONOCYTES # (AUTO) 0.3 (0.2-0.8); MONOCYTES % 8.1 % (4.4-11.3); NEUTROPHILS # (AUTO) 2.2 (2.1-6.9); NEUTROPHILS % 61.4 % (38.7-80.0); PLATELET COUNT 264 x10e3/uL (140-360); RED BLOOD COUNT 3.32 x10e6/uL (3.6-5.1)
[2021-06-25 05:48] LABS: ALANINE AMINOTRANSFERASE 18 IU/L (0-55); ALBUMIN 2.6 g/dL (3.5-5.0); ALBUMIN/GLOBULIN RATIO 0.8 (0.8-2.0); ALKALINE PHOSPHATASE 120 IU/L (40-150); ANION GAP 11.9 mmol/L (8-16); BLOOD UREA NITROGEN < 5 mg/dL (7-26); CALCIUM 7.2 mg/dL (8.4-10.2); CARBON DIOXIDE 20 mmol/L (22-29); CHLORIDE 109 mmol/L (98-107); CREATININE, SERUM 0.62 mg/dL (0.57-1.11); EST GLOMERULAR FILTRATION RATE 104 ML/MIN (60-); GLUCOSE 91 mg/dL (74-118); POTASSIUM 3.9 mmol/L (3.5-5.1); SODIUM 137 mmol/L (136-145)
[2021-06-25 05:49] LABS: BUN/CREATININE RATIO 8 (6-25)
[2021-06-25 08:38] VITALS: BP 141/93
[2021-06-25] MEDS: ACETAMIN/BUTALBITAL/CAFFEINE TAB PO PRN (08:41)
[2021-06-25] MEDS: LABETALOL HCL 100 MG TAB PO SCH (08:42)
[2021-06-25] MEDS: GABAPENTIN 300 MG CAP PO SCH (08:42)
[2021-06-25] MEDS: LEVETIRACETAM 500 MG TAB PO SCH (08:42)
[2021-06-25] MEDS: DICYCLOMINE HCL 10 MG CAP PO SCH (08:42)
[2021-06-25 09:35] VITALS: BP 141/93
== END 2021-06-25 10:50 | disposition home or self-care (01) | DRG 101 ==
LOC: ER 10:00 → ERHOLD 13:08 → MED/SURG3 20:33 → OBSVTOIN 06-24 15:19
PROVIDERS: ADMIT Internal Medicine; ATTEND Internal Medicine
DX: G40.909 Epilepsy, unspecified, not intractable, without status epilepticus (principal); M32.9 Systemic lupus erythematosus, unspecified; E87.8 Other disorders of electrolyte and fluid balance, not elsewhere classified; G89.29 Other chronic pain; K60.3 Anal fistula; I10 Essential (primary) hypertension; M79.7 Fibromyalgia; E83.42 Hypomagnesemia; R39.15 Urgency of urination; G62.9 Polyneuropathy, unspecified; F41.9 Anxiety disorder, unspecified; G47.00 Insomnia, unspecified; R32 Unspecified urinary incontinence; Z20.822 Contact with and (suspected) exposure to COVID-19; Z79.899 Other long term (current) drug therapy; R21 Rash and other nonspecific skin eruption
CPT/HCPCS: 36415; 70450; 71045; 72125; 80053; 80061; 82550; 82553; 82607; 82728; 82746; 83036; 83540; 83605; 83735; 84100; 84443; 84466; 84484; 84702; 85025; 85045; 85610; 85730; 93005; 93306; 93880; 94799; 96365; 99284; G0378; J1885; J2405; J3420; J3475; J7030; U0002